=== PATIENT | male | born 1930 | race Caucasian/White ===

== ENCOUNTER → 2016-12-19 | Outpatient (CLI) | payer MEDICARE ==
[~2016-12-19] MED LIST: ACET500C OR; ASPI81TA83 OR; CARV12.5 OR; CARV6.25 OR; HYDR25TA6 OR; LEVA750T OR; MARINOL PO; MEGE40TA2 OR; MULTIVIT PO; PAXI20TA OR; PROS5TAB OR; SLOWTAB OR; VICO5TAB OR; VICODIN 5/500 PO; XANA0.5T OR
--- NOTE | 2016-12-19 13:37 | REP ---
Chest two views HISTORY: COPD Comparison: 02/13/2015 There is elevation of the right hemidiaphragm. The lungs are clear. The heart is normal in size. The pulmonary vasculature is normal in appearance. The bony structure is intact. IMPRESSION: No acute disease. Signed by Marcus Ha MD 12/19/2016 01:29 P
== END ==
LOC: M SMT 13:06
PROVIDERS: ATTEND Internal Medicine Pulmonary Disease
DX: R91.8 Other nonspecific abnormal finding of lung field (principal); J44.9 Chronic obstructive pulmonary disease, unspecified

== ENCOUNTER 2017-07-27 10:11 | Emergency (ER) | payer MEDICARE ==
[2017-07-27 11:21] LABS: BASO # 0.1 10^3/uL (0.0-0.2); BASO % 0.4 % (0.0-1.0); EOS # 0.1 10^3/uL (0.0-0.50); EOS % 0.6 % (0.0-3.0); HEMATOCRIT 43.8 % (42.0-52.0); HEMOGLOBIN 14.6 g/dl (13.5-17.5); IMMATURE GRANULOCYTE % 0.4 % (0-3.0); LYMPH # 1.4 10^3/uL (1.5-4.5); LYMPH % 11.1 % (24.0-44.0); MEAN CORPUSCULAR HEMOGLOBIN 32.4 pg (27.0-33.0); MEAN CORPUSCULAR HGB CONC 33.3 g/dl (32.0-36.5); MEAN CORPUSCULAR VOLUME 97.3 fl (80.0-96.0); MONO # 1.1 10^3/uL (0.0-0.8); MONO % 8.9 % (0.0-5.0); NEUTROPHILS # 9.7 10^3/uL (1.8-7.7); NEUTROPHILS % 78.6 % (36.0-66.0); PLATELET COUNT, AUTOMATED 237 10^3/uL (150-450); RED CELL DISTRIBUTION WIDTH 12.7 % (11.5-14.5); WHITE BLOOD COUNT 12.4 10^3/uL (4.0-10.0)
[2017-07-27 11:34] LABS: INR 2.07
[2017-07-27] MEDS: methylPREDNISolone INJ 125 MG/2 ML VIAL (J2930) IV (11:39)
[2017-07-27] MEDS: IPRATROPIUM 0.5MG/ALBUTEROL 2.5MG INH SOL UD 3ML (DUONEB)(J7620) NEB (11:41)
[2017-07-27 11:46] LABS: ALBUMIN 2.8 GM/DL (3.2-5.2); ALBUMIN/GLOBULIN RATIO 0.64 (1.00-1.93); ALKALINE PHOSPHATASE 91 U/L (45-117); ALT/SGPT 30 U/L (12-78); AST/SGOT 35 U/L (7-37); BILIRUBIN,DIRECT 0.2 MG/DL (0.0-0.2); BILIRUBIN,TOTAL 0.8 MG/DL (0.2-1.0); TOTAL PROTEIN 7.2 GM/DL (6.4-8.2)
[2017-07-27 11:47] LABS: ANION GAP 4 MEQ/L (8-16); BLOOD UREA NITROGEN 17 MG/DL (7-18); CALCIUM LEVEL 8.6 MG/DL (8.8-10.2); CARBON DIOXIDE LEVEL 31 MEQ/L (21-32); CHLORIDE LEVEL 107 MEQ/L (98-107); CPK CREATINE PHOSPHOKINASE 125 U/L (39-308); CREATININE FOR GFR 1.35 MG/DL (0.70-1.30); GLOMERULAR FILTRATION RATE 53.5 (>35); GLUCOSE, FASTING 181 MG/DL (70-100); POTASSIUM SERUM 4.3 MEQ/L (3.5-5.1); SODIUM LEVEL 142 MEQ/L (136-145); TROPONIN I < 0.02 NG/ML (< 0.10)
[2017-07-27 11:48] LABS: CK-MB VALUE MASS 1.9 NG/ML (<3.6); MB/CK RELATIVE INDEX 1.52 (< OR =4); NT-PRO BNP 1179 PG/ML (<450)
[2017-07-27 11:57] LABS: INFLUENZA A AMPLIFICATION NEGATIVE (NEGATIVE); INFLUENZA B AMPLIFICATION NEGATIVE (NEGATIVE)
== END 2017-07-27 13:23 | disposition home or self-care (01) ==
LOC: M ED 10:11
DX: J44.1 Chronic obstructive pulmonary disease with (acute) exacerbation (principal); J06.9 Acute upper respiratory infection, unspecified; I48.91 Unspecified atrial fibrillation; Z85.118 Personal history of other malignant neoplasm of bronchus and lung; Z86.718 Personal history of other venous thrombosis and embolism; Z87.891 Personal history of nicotine dependence; Z79.899 Other long term (current) drug therapy; Z79.01 Long term (current) use of anticoagulants; Z90.2 Acquired absence of lung [part of]
CPT/HCPCS: J2930

== ENCOUNTER → 2018-01-20 | Outpatient (CLI) | payer MEDICARE | LOC: M PLARAD 10:17 | DX: R91.8 Other nonspecific abnormal finding of lung field (principal); Z85.038 Personal history of other malignant neoplasm of large intestine; Z85.118 Personal history of other malignant neoplasm of bronchus and lung; Z90.2 Acquired absence of lung [part of] | CPT/HCPCS: 78815 ==

== ENCOUNTER → 2018-01-27 | Outpatient (REF) | payer MEDICARE ==
[2018-01-27 20:10] LABS: BASO # 0.1 10^3/uL (0.0-0.2); EOS # 0.2 10^3/uL (0.0-0.50); EOS % 2.1 % (0.0-3.0); HEMATOCRIT 44.7 % (42.0-52.0); HEMOGLOBIN 14.8 g/dl (13.5-17.5); IMMATURE GRANULOCYTE % 0.3 % (0-3.0); LYMPH # 1.5 10^3/uL (1.5-4.5); LYMPH % 19.5 % (24.0-44.0); MEAN CORPUSCULAR HEMOGLOBIN 32.6 pg (27.0-33.0); MEAN CORPUSCULAR HGB CONC 33.1 g/dl (32.0-36.5); MEAN CORPUSCULAR VOLUME 98.5 fl (80.0-96.0); MONO # 0.6 10^3/uL (0.0-0.8); MONO % 8.3 % (0.0-5.0); NEUTROPHILS # 5.3 10^3/uL (1.8-7.7); NEUTROPHILS % 68.8 % (36.0-66.0); PLATELET COUNT, AUTOMATED 228 10^3/uL (150-450); RED BLOOD COUNT 4.54 10^6/uL (4.30-6.10); RED CELL DISTRIBUTION WIDTH 13.8 % (11.5-14.5); WHITE BLOOD COUNT 7.7 10^3/uL (4.0-10.0)
[2018-01-27 20:15] LABS: PROTHROMBIN TIME 28.4 SECONDS (12.1-14.4)
[2018-01-27 20:53] LABS: ALBUMIN 3.3 GM/DL (3.2-5.2); ALBUMIN/GLOBULIN RATIO 0.94 (1.00-1.93); ALKALINE PHOSPHATASE 65 U/L (45-117); ALT/SGPT 21 U/L (12-78); ANION GAP 5 MEQ/L (8-16); AST/SGOT 26 U/L (7-37); BILIRUBIN,TOTAL 0.7 MG/DL (0.2-1.0); BLOOD UREA NITROGEN 16 MG/DL (7-18); CALCIUM LEVEL 8.5 MG/DL (8.8-10.2); CARBON DIOXIDE LEVEL 29 MEQ/L (21-32); CHLORIDE LEVEL 108 MEQ/L (98-107); CREATININE FOR GFR 1.01 MG/DL (0.70-1.30); GLOMERULAR FILTRATION RATE > 60.0 (>35); GLUCOSE, FASTING 73 MG/DL (70-100); SODIUM LEVEL 142 MEQ/L (136-145); TOTAL PROTEIN 6.8 GM/DL (6.4-8.2)
== END ==
LOC: M LAB REF 16:57
DX: C34.91 Malignant neoplasm of unspecified part of right bronchus or lung (principal); Z79.01 Long term (current) use of anticoagulants
CPT/HCPCS: 80053

== ENCOUNTER → 2018-02-02 | Outpatient (CLI) | payer MEDICARE ==
[2018-02-02 15:14] LABS: INR 1.08; PROTHROMBIN TIME 14.1 SECONDS (12.1-14.4)
[2018-02-02 15:15] LABS: PARTIAL THROMBOPLASTIN TIME 31.6 SECONDS (25.4-37.6)
== END ==
LOC: M LAB 14:24
DX: C34.91 Malignant neoplasm of unspecified part of right bronchus or lung (principal); I82.509 Chronic embolism and thrombosis of unspecified deep veins of unspecified lower extremity
CPT/HCPCS: 85610

== ENCOUNTER → 2018-02-23 | Outpatient (CLI) | payer MEDICARE ==
[2018-02-23 10:12] LABS: INR 1.25; PROTHROMBIN TIME 15.9 SECONDS (12.1-14.4)
== END ==
LOC: M LAB 09:25
DX: Z01.812 Encounter for preprocedural laboratory examination (principal); Z51.81 Encounter for therapeutic drug level monitoring; Z79.01 Long term (current) use of anticoagulants
CPT/HCPCS: 85610

== ENCOUNTER 2018-02-24 05:56 | Day surgery (SDC) | payer MEDICARE ==
[~2018-02-24 05:56] MED LIST changes: -ACET500C OR; -ASPI81TA83 OR; -CARV12.5 OR; -CARV6.25 OR; -HYDR25TA6 OR; -LEVA750T OR; +LR 1,000 ML IV; -MARINOL PO; -MEGE40TA2 OR; -MULTIVIT PO; -PAXI20TA OR; -PROS5TAB OR; -SLOWTAB OR; -VICO5TAB OR; -VICODIN 5/500 PO; -XANA0.5T OR
[2018-02-24] MEDS ORDERED: LR 1,000 ML IV ×2 (06:00→09:00)
[2018-02-24] MEDS ORDERED: ROCURONIUM BROMIDE 50 MG/5 ML VIAL As Ordered (06:14)
[2018-02-24] MEDS ORDERED: ETOMIDATE INJ 20MG/10ML VIAL As Ordered (06:14)
[2018-02-24] MEDS ORDERED: PROPOFOL 200 MG/20 ML VIAL As Ordered (06:14)
[2018-02-24] MEDS ORDERED: PHENYLEPHRINE INJ 10MG/ML VIAL (J2370) As Ordered (06:15)
[2018-02-24] MEDS ORDERED: dexameTHASONE 4 MG/ML 1ML VIAL (J1100) As Ordered (06:15)
[2018-02-24] MEDS ORDERED: ONDANSETRON 4MG/2ML VIAL (J2405) As Ordered (06:15)
[2018-02-24] MEDS ORDERED: LIDOCAINE 2% INJ 100 MG/5 ML SDV (FOR ANES.) As Ordered (06:16)
[2018-02-24 07:03] LABS: INR 1.17; PROTHROMBIN TIME 15.1 SECONDS (12.1-14.4)
[2018-02-24] MEDS: CETACAINE SPRAY 5GM As Ordered (07:48)
[2018-02-24] MEDS ORDERED: SUGAMMADEX SODIUM 500 MG/5 ML VIAL (BRIDION) As Ordered (07:58)
[2018-02-24] MEDS ORDERED: fentaNYL 100 MCG/2 ML INJECTION (J3010) As Ordered (07:58)
[2018-02-24] MEDS ORDERED: MIDAZOLAM INJ 2 MG/2 ML VIAL (J2250) As Ordered (07:58)
[2018-02-24] MEDS: THROMBIN SOLN 5,000 UNITS VIAL As Ordered (08:37)
[2018-02-24] MEDS: LIDOCAINE VISCOUS 2% SOLN 15ML UDC As Ordered (08:37)
[2018-02-24] MEDS: EPINEPHrine 1MG/10ML SYRINGE 1.5IN As Ordered (08:38)
[2018-02-24] MEDS: LIDOCAINE 1% SDV INJ 30 ML VIAL As Ordered (08:38)
[2018-02-24] MEDS ORDERED: PERCOCET 5MG/325MG TAB PO (09:00)
[2018-02-24] MEDS ORDERED: fentaNYL 100 MCG/2 ML INJECTION (J3010) IV (09:00)
[2018-02-24] MEDS ORDERED: METOCLOPRAMIDE INJ 10MG/2ML VIAL (J2765) IV (09:00)
[2018-02-24] MEDS ORDERED: ONDANSETRON 4MG/2ML VIAL (J2405) IV (09:00)
== END 2018-02-24 09:55 | disposition home or self-care (01) ==
LOC: M SDC 05:56
DX: R91.8 Other nonspecific abnormal finding of lung field (principal); C34.11 Malignant neoplasm of upper lobe, right bronchus or lung; I10 Essential (primary) hypertension; Z85.038 Personal history of other malignant neoplasm of large intestine; Z92.21 Personal history of antineoplastic chemotherapy; N40.0 Benign prostatic hyperplasia without lower urinary tract symptoms; I82.509 Chronic embolism and thrombosis of unspecified deep veins of unspecified lower extremity; J44.9 Chronic obstructive pulmonary disease, unspecified; Z86.73 Personal history of transient ischemic attack (TIA), and cerebral infarction without residual deficits; Z79.01 Long term (current) use of anticoagulants; Z79.51 Long term (current) use of inhaled steroids; Z79.899 Other long term (current) drug therapy
CPT/HCPCS: 31628

== ENCOUNTER 2018-03-09 16:29 | Emergency (ER) | payer MEDICARE ==
[2018-03-09 17:54] LABS: BASO # 0.1 10^3/uL (0.0-0.2); BASO % 0.6 % (0.0-1.0); EOS # 0.1 10^3/uL (0.0-0.50); EOS % 0.8 % (0.0-3.0); HEMATOCRIT 45.4 % (42.0-52.0); HEMOGLOBIN 15.2 g/dl (13.5-17.5); IMMATURE GRANULOCYTE % 0.4 % (0-3.0); LYMPH # 1.5 10^3/uL (1.5-4.5); LYMPH % 13.7 % (24.0-44.0); MEAN CORPUSCULAR HEMOGLOBIN 33.2 pg (27.0-33.0); MEAN CORPUSCULAR HGB CONC 33.5 g/dl (32.0-36.5); MEAN CORPUSCULAR VOLUME 99.1 fl (80.0-96.0); MONO # 0.8 10^3/uL (0.0-0.8); MONO % 7.2 % (0.0-5.0); NEUTROPHILS # 8.4 10^3/uL (1.8-7.7); NEUTROPHILS % 77.3 % (36.0-66.0); PLATELET COUNT, AUTOMATED 218 10^3/uL (150-450); RED BLOOD COUNT 4.58 10^6/uL (4.30-6.10); RED CELL DISTRIBUTION WIDTH 13.9 % (11.5-14.5); WHITE BLOOD COUNT 10.8 10^3/uL (4.0-10.0)
[2018-03-09 18:04] LABS: INR 2.22; PROTHROMBIN TIME 25.1 SECONDS (12.1-14.4)
[2018-03-09 18:05] LABS: PARTIAL THROMBOPLASTIN TIME 39.1 SECONDS (25.4-37.6)
[2018-03-09] MEDS: PERCOCET 5MG/325MG TAB PO (19:14)
[2018-03-09] MEDS: **hydrALAZINE** 10 MG TAB PO (20:09)
== END 2018-03-09 20:21 | disposition home or self-care (01) ==
LOC: M ED 16:29
DX: R04.0 Epistaxis (principal); Z87.891 Personal history of nicotine dependence
CPT/HCPCS: 85610

== ENCOUNTER 2018-03-11 23:19 | Emergency (ER) | payer MEDICARE ==
[2018-03-11] MEDS: **hydrALAZINE** 10 MG TAB PO (23:51)
[2018-03-12] MEDS: OXYMETAZOLINE NASAL SPRAY (AFRIN) (00:28)
[2018-03-12 00:29] LABS: BASO # 0.1 10^3/uL (0.0-0.2); BASO % 0.4 % (0.0-1.0); EOS # 0.2 10^3/uL (0.0-0.50); EOS % 1.2 % (0.0-3.0); HEMATOCRIT 44.4 % (42.0-52.0); HEMOGLOBIN 14.9 g/dl (13.5-17.5); IMMATURE GRANULOCYTE % 0.5 % (0-3.0); LYMPH # 1.3 10^3/uL (1.5-4.5); LYMPH % 9.2 % (24.0-44.0); MEAN CORPUSCULAR HEMOGLOBIN 32.7 pg (27.0-33.0); MEAN CORPUSCULAR HGB CONC 33.6 g/dl (32.0-36.5); MEAN CORPUSCULAR VOLUME 97.4 fl (80.0-96.0); MONO % 7.5 % (0.0-5.0); NEUTROPHILS # 11.1 10^3/uL (1.8-7.7); NEUTROPHILS % 81.2 % (36.0-66.0); PLATELET COUNT, AUTOMATED 238 10^3/uL (150-450); RED BLOOD COUNT 4.56 10^6/uL (4.30-6.10); RED CELL DISTRIBUTION WIDTH 14.2 % (11.5-14.5); WHITE BLOOD COUNT 13.6 10^3/uL (4.0-10.0)
[2018-03-12 00:41] LABS: INR 2.25; PROTHROMBIN TIME 25.3 SECONDS (12.1-14.4)
[2018-03-12 00:42] LABS: PARTIAL THROMBOPLASTIN TIME 41.6 SECONDS (25.4-37.6)
[2018-03-12] MEDS: CEPHALEXIN 500 MG CAP PO (02:28)
[2018-03-12] MEDS: CARVedilol 12.5 MG TAB PO (02:28)
== END 2018-03-12 03:02 | disposition home or self-care (01) ==
LOC: M ED 23:19
DX: R04.0 Epistaxis (principal); I10 Essential (primary) hypertension; Z85.038 Personal history of other malignant neoplasm of large intestine; Z86.718 Personal history of other venous thrombosis and embolism; Z79.01 Long term (current) use of anticoagulants; Z79.899 Other long term (current) drug therapy
CPT/HCPCS: 85610

== ENCOUNTER → 2018-03-18 | Outpatient (CLI) | payer MEDICARE | LOC: M RAD 07:51 | DX: R91.8 Other nonspecific abnormal finding of lung field (principal) | CPT/HCPCS: 71250 ==

== ENCOUNTER → 2018-03-20 | Outpatient (REF) | payer MEDICARE ==
[2018-03-20 18:55] LABS: INR 1.22; PARTIAL THROMBOPLASTIN TIME 32.9 SECONDS (25.4-37.6); PROTHROMBIN TIME 15.6 SECONDS (12.1-14.4)
== END ==
LOC: M LAB REF 17:00
DX: R91.8 Other nonspecific abnormal finding of lung field (principal); Z79.01 Long term (current) use of anticoagulants
CPT/HCPCS: 85610

== ENCOUNTER 2018-03-23 07:46 | Day surgery (SDC) | payer MEDICARE ==
[2018-03-23] MEDS ORDERED: ONDANSETRON 4MG/2ML VIAL (J2405) As Ordered (08:17)
[2018-03-23] MEDS ORDERED: PROPOFOL 200 MG/20 ML VIAL As Ordered (08:17)
[2018-03-23] MEDS ORDERED: LIDOCAINE 2% INJ 100 MG/5 ML SDV (FOR ANES.) As Ordered (08:17)
[2018-03-23] MEDS ORDERED: ROCURONIUM BROMIDE 50 MG/5 ML VIAL As Ordered (08:18)
[2018-03-23] MEDS ORDERED: MIDAZOLAM INJ 2 MG/2 ML VIAL (J2250) As Ordered (08:18)
[2018-03-23] MEDS ORDERED: fentaNYL 100 MCG/2 ML INJECTION (J3010) As Ordered (08:18)
[2018-03-23 08:25] LABS: INR 1.04; PROTHROMBIN TIME 13.8 SECONDS (12.1-14.4)
[2018-03-23] MEDS: LR 1,000 ML IV (08:45)
[2018-03-23] MEDS ORDERED: THROMBIN SOLN 5,000 UNITS VIAL As Ordered (09:08)
[2018-03-23] MEDS: LIDOCAINE VISCOUS 2% SOLN 15ML UDC As Ordered (09:09)
[2018-03-23] MEDS: LIDOCAINE 1% SDV INJ 30 ML VIAL As Ordered (09:09)
[2018-03-23] MEDS: EPINEPHrine 1MG/10ML SYRINGE 1.5IN As Ordered (09:09)
[2018-03-23] MEDS: CETACAINE SPRAY 5GM As Ordered (09:45)
[2018-03-23] MEDS ORDERED: PHENYLephrine HCL 500 MCG/5 ML (100MCG/ML) SYRINGE (J2370) As Ordered (09:56)
[2018-03-23] MEDS ORDERED: ePHEDrine SULFATE 25 MG/5 ML(5MG/ML) SYRINGE As Ordered (09:56)
[2018-03-23] MEDS ORDERED: SUGAMMADEX SODIUM 500 MG/5 ML VIAL (BRIDION) As Ordered (10:00)
[2018-03-23] MEDS: LIDOCAINE 1% MDV 20ML VIAL SQ (10:37)
[2018-03-23] MEDS ORDERED: fentaNYL 100 MCG/2 ML INJECTION (J3010) IV (10:45)
[2018-03-23] MEDS ORDERED: ONDANSETRON 4MG/2ML VIAL (J2405) IV (10:45)
[2018-03-23] MEDS ORDERED: LR 1,000 ML IV (10:45)
[2018-03-23] MEDS ORDERED: METOCLOPRAMIDE INJ 10MG/2ML VIAL (J2765) IV (10:45)
[2018-03-23] MEDS ORDERED: PERCOCET 5MG/325MG TAB PO (10:45)
[2018-03-23 12:13] LABS: APPEARANCE CLOTTED (CLEAR); BAL DIFF IF INDICATED? YES (NO); COLOR RED (COLORLESS); SOURCE RIGHT UPPER LOBE
[2018-03-23 13:37] LABS: MONOCYTES/MACROPHAGES, BAL 1 %
[2018-03-23 13:38] LABS: CC BAL DIFF EXAM CYTOCENTRIFUGE
== END 2018-03-23 12:08 | disposition home or self-care (01) ==
LOC: M SDC 07:46
DX: R91.1 Solitary pulmonary nodule (principal); I10 Essential (primary) hypertension; R09.81 Nasal congestion; N40.0 Benign prostatic hyperplasia without lower urinary tract symptoms; J44.9 Chronic obstructive pulmonary disease, unspecified; K21.9 Gastro-esophageal reflux disease without esophagitis; R29.898 Other symptoms and signs involving the musculoskeletal system; F41.9 Anxiety disorder, unspecified; Z79.899 Other long term (current) drug therapy; Z79.01 Long term (current) use of anticoagulants; Z85.118 Personal history of other malignant neoplasm of bronchus and lung; Z85.038 Personal history of other malignant neoplasm of large intestine; Z87.81 Personal history of (healed) traumatic fracture; Z86.718 Personal history of other venous thrombosis and embolism; Z86.79 Personal history of other diseases of the circulatory system; Z92.21 Personal history of antineoplastic chemotherapy; Z87.891 Personal history of nicotine dependence; Z96.642 Presence of left artificial hip joint
CPT/HCPCS: 31629

== ENCOUNTER → 2018-08-25 | Outpatient (CLI) | payer MEDICARE ==
[~2018-08-25] MED LIST changes: +ACET500C OR; +ALBU17IN2 INH; +ASPI81TA83 OR; +AUGM875T28 PO; +CARV12.5 OR; +CARV12.5 PO; +CARV6.25 OR; +HYDR10TAB PO; +HYDR25TA6 OR; +KEFL500C17 PO; +LEVA750T OR; -LR 1,000 ML IV; +MAGN64TASA PO; +MARINOL PO; +MEGE40TA2 OR; +MUCI600T37 PO; +MULT1TAB10 PO; +MULTIVIT PO; +PAXI20TA OR; +PRED20TA PO; +PROAAER10 INH; +PROS5TAB OR; +PROS5TAB PO; +SLOWTAB OR; +SYMB16INH INH; +TIOT18INH INH; +VICO5TAB OR; +VICODIN 5/500 PO; +WARF-23 PO; +XANA0.5T OR
--- NOTE | 2018-08-25 13:34 | REP ---
PET/CT: HISTORY: Staging lung cancer. Also history of colon carcinoma. COMPARISONS: Comparison PET/CT studies are dated January 20, 2018 and September 12, 2011. 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 Most recent chest CT study is March 18, 2018. TECHNIQUE: 47 minutes following the intravenous injection of a 8.56 mCi dose of F-18 FDG, three-dimensional PET scintigraphy is acquired from the skull base to the proximal thighs. Triplanar noncontrast CT scanning is acquired through the same anatomic range for attenuation correction, and image registration with scan parameters optimized to minimize radiation exposure to the patient. PET scintigraphy and CT datasets were fused and displayed on a workstation with multiplanar and projection display capability. PET/CT FINDINGS: There is an irregularly marginated pleural-based nodular opacity in the left upper lobe which now shows mildly hypermetabolic uptake. Maximum standard uptake value in this is 3.11. This measures approximately 1.9 cm as on March 18, [address] There is persistent hypermetabolic uptake in the large mass in the right perihilar region medially adjacent to the heart. Maximum standard uptake value here is 12.62. The hypermetabolic area measures 6.9 cm x 3.0 cm x 4.1 cm. On January 20, 2018, maximum standard uptake value in this area measured 17.7. It is similar in size. There is some pleural thickening posteriorly in the right inferior chest which shows a linear pattern of slightly increased uptake, maximum standard uptake value 2.34. This is unchanged. No other abnormal hypermetabolic uptake is seen in the chest. Head and neck soft tissues remain unremarkable. In the abdomen and pelvis, there is no abnormal hypermetabolic uptake. Postoperative changes are seen in the right abdomen. Small gallstones appear in retracted gallbladder. IMPRESSION: 1. Persistent hypermetabolic uptake in the right infrahilar mass. 2. Increased uptake is now visible in the left upper lobe pleuroparenchymal nodular density. 3. There is mildly increased non-hypermetabolic uptake in the right pleural thickening unchanged. Electronically Signed by Riki Call MD 08/25/2018 10:27 P
== END ==
LOC: M PLARAD 08:18
PROVIDERS: ATTEND Internal Medicine Pulmonary Disease
DX: C34.12 Malignant neoplasm of upper lobe, left bronchus or lung (principal); C34.01 Malignant neoplasm of right main bronchus; Z85.038 Personal history of other malignant neoplasm of large intestine
CPT/HCPCS: 78815; A9552

== ENCOUNTER → 2018-11-23 | Outpatient (CLI) | payer MEDICARE ==
[~2018-11-23] MED LIST changes: +FURO20TA2 PO; +MULTCAP PO; +SPIR1CAP INH
--- NOTE | 2018-11-23 14:15 | REP ---
REASON: Followup left hilar mass. COMPARISON: Multiple, the latest, 03/18/2018 iLog protocol. There is mediastinal and advanced right hilar adenopathy. This has increased. There are no pleural or pericardial effusions. There is a capacious superior pericardial recess, status quo. There is no change in the imaged upper abdomen or imaged osseous structures. There is cholelithiasis status quo. Evaluation of the lung meza shows a spiculated nodule in the left upper lobe some of which is pleural-based and having a maximal dimension of 2.4 cm increased from the prior exam when it measured 1.9 cm. It is spiculated. There are other scattered asymmetric densities throughout the lung meza. There is asymmetric pleural thickening bilaterally with evidence of prior surgical procedure in the right lower lobe. There is an additional left upper lobe nodule measuring 1.3 cm. Previously, this appeared to be only in the area of irregular density and pleural based. IMPRESSION: Worsened findings as described above. ? Electronically Signed by Johnathan Lyman DO 11/23/2018 02:21 P
== END ==
LOC: M RAD 09:23
PROVIDERS: ATTEND Internal Medicine Pulmonary Disease
DX: J44.9 Chronic obstructive pulmonary disease, unspecified (principal); K80.20 Calculus of gallbladder without cholecystitis without obstruction

== ENCOUNTER → 2019-01-06 | Outpatient (REF) | payer MEDICARE ==
[~2019-01-06] MED LIST changes: -ALBU17IN2 INH; +PROV108A INH
[2019-01-06 18:45] LABS: BASO # 0.1 10^3/uL (0.0-0.2); BASO % 0.9 % (0.0-1.0); EOS # 0.3 10^3/uL (0.0-0.5); EOS % 3.8 % (0.0-3.0); HEMATOCRIT 50.1 % (42.0-52.0); HEMOGLOBIN 16.6 g/dl (13.5-17.5); LYMPH # 1.4 10^3/uL (1.5-5.0); LYMPH % 16.1 % (24.0-44.0); MEAN CORPUSCULAR HEMOGLOBIN 33.7 pg (27.0-33.0); MEAN CORPUSCULAR HGB CONC 33.1 g/dl (32.0-36.5); MEAN CORPUSCULAR VOLUME 101.6 fl (80.0-96.0); MONO % 11.3 % (0.0-5.0); NEUTROPHILS % 67.6 % (36.0-66.0); PLATELET COUNT, AUTOMATED 280 10^3/uL (150-450); RED BLOOD COUNT 4.93 10^6/uL (4.30-6.10); WHITE BLOOD COUNT 8.8 10^3/uL (4.0-10.0)
[2019-01-06 18:59] LABS: BLOOD UREA NITROGEN 23 MG/DL (7-18); CALCIUM LEVEL 9.6 MG/DL (8.8-10.2); CARBON DIOXIDE LEVEL 30 MEQ/L (21-32); CHLORIDE LEVEL 105 MEQ/L (98-107); CREATININE FOR GFR 1.18 MG/DL (0.70-1.30); GLOMERULAR FILTRATION RATE > 60.0 (>35); GLUCOSE, FASTING 77 MG/DL (70-100); POTASSIUM SERUM 4.9 MEQ/L (3.5-5.1); SODIUM LEVEL 140 MEQ/L (136-145)
== END ==
LOC: M LAB REF 17:06
PROVIDERS: ATTEND Internal Medicine Pulmonary Disease
DX: J44.9 Chronic obstructive pulmonary disease, unspecified (principal)

== ENCOUNTER → 2019-01-11 | Outpatient (CLI) | payer MEDICARE ==
[~2019-01-11] MED LIST changes: +ACET1TAB55 PO; +ASMA16.7 INH; +STIO1AER IN
--- NOTE | 2019-01-12 07:19 | REP ---
CT CHEST WITHOUT CONTRAST: 01/11/2019 COMPARISON: 11/23/2018, 03/18/2018, outside CT. CLINICAL HISTORY: COPD, lung mass. TECHNIQUE: Noncontrast protocol utilized with coronal and sagittal reconstructions. iLogic protocol also utilized and images provided per request of the attending physician. FINDINGS: The patient has had right middle and lower lobectomy with volume loss right hemithorax. Hilar infrahilar mass on the right side again seen, thickness now 3 cm, was 2.9 cm. Length 8.1 cm, previously 8.2 cm at the same level. Overall not much changed in the past 6 weeks. The pleural thickening or pleural based mass in the right medial base circumferentially, posteriorly and laterally in the right lower lung zone. Pleuroparenchymal mass in the left mid upper lung zone again seen. Maximum diameter 2.7 cm was 2.5 cm. No other new or acute nodule, mass or interval change. There is compensatory hyperinflation in the left lung. There is prominence of the cardiac silhouette with some left atrial and ventricular enlargement. No pericardial thickening or effusion. A tiny hiatal hernia is suspected. Calcifications at the aortic root and some coronary artery calcifications noted. Vascular calcifications noted. There is some fluid in the superior pericardium adjacent to the ascending aorta, unchanged with a low CT attenuation values as on the previous study. Calcifications in the arch, no aneurysm. The sternum, manubrium, medial clavicles show some degenerative changes but no destructive lesion, glenohumeral joints, also with some degenerative change. The visualized portions of scapulae and humeral heads intact. Ribs without evidence of acute fracture or destructive lesion. Spine shows degenerative osteophytes without compression deformity. Upper abdomen shows calcified gallstones in a contracted gallbladder, as before. A few calcifications in the spleen with no hepatosplenomegaly or focal lesion. Adrenal glands grossly intact. Upper poles kidneys with some calcifications in pyramids on the right, but no hydronephrosis. There is fatty atrophy of the pancreas without inflammatory change. An anastomotic suture line in the region of the hepatic flexure is unchanged. IMPRESSION: 1. No change in the hilar infrahilar mass in the right and a few millimeters of increased size of the peripheral left mid upper lung zone lesion since the study 6 weeks ago. 2. Postoperative changes. 3. Heart size enlarged but stable. 4. Pleural thickening, pleural-based masses, medial and posterior right base, stable Electronically Signed by Huang Bowles MD 01/12/2019 08:18 A
== END ==
LOC: M RAD 17:57
PROVIDERS: ATTEND Internal Medicine Pulmonary Disease
DX: J44.9 Chronic obstructive pulmonary disease, unspecified (principal)

== ENCOUNTER 2019-01-18 07:36 | Day surgery (SDC) | payer MEDICARE ==
[~2019-01-18] VITALS: Ht 177.8 cm; Wt 81.6 kg
[~2019-01-18 07:36] MED LIST changes: -ACET1TAB55 PO; +LIDOCAINE 1% MDV 20ML VIAL SQ PRN; +LIDOCAINE 2% INJ 100 MG/5 ML SDV (FOR ANES.) As Ordered ONE; +LR 1,000 ML IV SCH; +ONDANSETRON 4MG/2ML VIAL (J2405) As Ordered ONE; +PROPOFOL 200 MG/20 ML VIAL As Ordered ONE
[2019-01-18] MEDS ORDERED: fentaNYL 100 MCG/2 ML INJECTION (J3010) As Ordered ONE (08:14)
[2019-01-18] MEDS ORDERED: ROCURONIUM BROMIDE 50 MG/5 ML VIAL As Ordered ONE ×2 (08:15→10:23)
[2019-01-18] MEDS ORDERED: dexameTHASONE 4 MG/ML 1ML VIAL (J1100) As Ordered ONE (08:16)
[2019-01-18] MEDS ORDERED: ACET1TAB55 PO (08:20)
[2019-01-18 08:21] LABS: INR 1.15; PROTHROMBIN TIME 14.4 SECONDS (11.8-14.0)
[2019-01-18] MEDS ORDERED: THROMBIN SOLN 5,000 UNITS VIAL As Ordered ONE (08:56)
[2019-01-18] MEDS ORDERED: EPINEPHrine 1MG/10ML SYRINGE 1.5IN As Ordered ONE (08:56)
[2019-01-18] MEDS ORDERED: CETACAINE SPRAY 5GM As Ordered ONE (08:56)
[2019-01-18] MEDS ORDERED: LIDOCAINE 1% SDV INJ 30 ML VIAL As Ordered ONE (08:56)
[2019-01-18] MEDS ORDERED: LIDOCAINE VISCOUS 2% SOLN 15ML UDC As Ordered ONE (08:56)
[2019-01-18] MEDS ORDERED: SUGAMMADEX SODIUM 500 MG/5 ML VIAL (BRIDION) As Ordered ONE (10:06)
[2019-01-18] MEDS ORDERED: PHENYLephrine HCL 500 MCG/5 ML (100MCG/ML) SYRINGE (J2370) As Ordered ONE (10:13)
[2019-01-18] MEDS ORDERED: ePHEDrine SULFATE 25 MG/5 ML(5MG/ML) SYRINGE As Ordered ONE ×2 (10:14→11:46)
--- NOTE | 2019-01-18 10:54 | REP ---
Limited chest x-ray: Single view. History: EBUS. Fluoroscopy time is recorded at 3 minutes 14 seconds. Findings: A single last image hold fluoroscopically obtained spot radiograph of the left chest documents bronchoscopic position and fiducial marker placement in the left chest. Electronically Signed by Riki Call MD 01/18/2019 11:48 A
[2019-01-18 11:53] VITALS: BP 139/70
--- NOTE | 2019-01-18 11:57 | REP ---
Portable chest x-ray: Single view. History: Post bronchoscopy. Comparison study: March 23, 2018. Findings: Lungs are exposed at a relatively low level of inspiration. There are two fiducial markers visible in the left upper perihilar region. Right hemidiaphragm is again noted to be elevated. There are surgical clips in the right hilus region. Cardiomegaly is observed. The aorta is tortuous and calcific. There is no evidence of pneumothorax or hydrothorax. Electronically Signed by Riki Call MD 01/18/2019 12:09 P
--- NOTE | 2019-01-20 14:31 | ROOR ---
Patient Name: Rosibel Ruth Procedure Date: 01/18/2019 8:57 AM Date of : 1930 Admit Type: Outpatient Age: 88 Note Status: Finalized Attending MD: Christine Samano MD Procedure: Bronchoscopy Indications: Left upper lobe mass, Hilar lymphadenopathy of the right side, Mediastinal adenopathy Providers: Christine Samano MD (Doctor) Referring MD: Estrella Willett MD (Referring MD) Requesting Physician: Medicines: General Anesthesia, Cetacaine topical Complications: No immediate complications. Estimated blood loss: Minimal Procedure: Pre-Anesthesia Assessment: - Prior to the procedure, a History and Physical was performed, and patient medications and allergies were reviewed. The patient's tolerance of previous anesthesia was also reviewed. The risks and benefits of the procedure and the sedation options and risks were discussed with the patient. All questions were answered, and informed consent was obtained. Prior Anticoagulants: The patient has taken Coumadin (warfarin), last dose was 5 days prior to procedure. ASA Grade Assessment: III - A patient with severe systemic disease. After reviewing the risks and benefits, the patient was deemed in satisfactory condition to undergo the procedure. The Bronchoscope was introduced through the mouth, via the endotracheal tube (the patient was intubated for the procedure) and advanced to the tracheobronchial tree of both lungs. The procedure was accomplished without difficulty. The patient tolerated the procedure well. Findings: In the trachea there were some nodularity noted in cartilaginous rings in upper portion of trachea. In the left lung the GATO with anatomic variant with three segmental bronchi. There was some webbing and pitting noted and few yellow mucoid secretions. No endobronchial lesions in left bronchial tree. Right Lung Abnormalities: Narrowing was found in the right upper lobe. Patient status post right middle and right lower lobectomy. Electromagnetic navigation bronchoscopy utilizing the [employer] system with iLogic upgrade was performed. The CT scan was used for planning purposes. A virtual bronchoscopic image was generated using the planning software and the left main bronchus megan, left lower lobe basilar segment, right upper lobe, right middle lobe and right lower lobe basilar segment registration points were marked on the virtual image. The target in the apical-posterior segment of the left upper lobe was marked. A nodule 2.7 cm in size was found and a pathway was identified. After a complete airway exam, the locatable guide/extended working channel was inserted and an automatic registration was performed by advancing the scope through the left main bronchus megan, left lower lobe basilar segment, right upper lobe, right middle lobe and right lower lobe basilar segment. The navigation phase was then begun to locate the target lesion(s). Positioning centrally (in relation to the lesion) was confirmed using the Olympus radial probe US catheter. The locatable guide was removed from the extended working channel. Fluoroscopy guided transbronchial brushings were obtained in the nodule in apical-posterior segment of the left upper lobe with a needle brush and sent for routine cytology. Transbronchial brushing technique was selected because the sampling site was not visible endoscopically. Transbronchial needle aspiration of a nodule was performed in the apical-posterior segment of the left upper lobe GenCut and sent for routine cytology. The procedure was guided by fluoroscopy. Transbronchial needle aspiration technique was selected because the sampling site was not visible endoscopically. Transbronchial biopsies were performed in the apical-posterior segment of the left upper lobe using forceps and sent for histopathology examination. The procedure was guided by fluoroscopy. Transbronchial biopsy technique was selected because the sampling site was not visible endoscopically. Fiducial marker placement was performed. Once the target lesion was identified, three markers were deployed in and around the lesion in the apical-posterior segment of the left upper lobe. An endobronchial ultrasound endoscope was utilized in order to assist with fine needle aspiration in the right paratracheal area and in the right hilum. Transbronchial needle aspiration of a lymph nodes was performed in the right paratracheal area and in the right hilum using an Olympus EBUS-TBNA 21 gauge needle and sent for routine cytology. The procedure was guided by ultrasound. Transbronchial needle aspiration technique was selected because the sampling site was not visible endoscopically. Estimated blood loss: minimal. Impression: - Left upper lobe mass - Hilar lymphadenopathy of the right side - Mediastinal adenopathy - A narrowing was found in the right upper lobe. - Electromagnetic navigation bronchoscopy was performed. - Transbronchial brushings were obtained. - A transbronchial needle aspiration was performed. - Transbronchial lung biopsies were performed. - Fiducial markers were deployed. - Endobronchial ultrasound was performed. - A transbronchial needle aspiration was performed. Recommendation: - Await test results. - Follow up with bronchoscopist as previously scheduled. Attending Participation: I personally performed the entire procedure. Christine Samano MD 01/20/2019 2:31:35 PM Number of Addenda: 0 Note Initiated On: 01/18/2019 8:57 AM
== END 2019-01-18 12:18 | disposition home or self-care (01) ==
LOC: M SDC 07:36
PROVIDERS: ATTEND Internal Medicine Pulmonary Disease
DX: C34.12 Malignant neoplasm of upper lobe, left bronchus or lung (principal); C77.1 Secondary and unspecified malignant neoplasm of intrathoracic lymph nodes; I10 Essential (primary) hypertension; J44.9 Chronic obstructive pulmonary disease, unspecified; I48.91 Unspecified atrial fibrillation; R60.0 Localized edema; N40.0 Benign prostatic hyperplasia without lower urinary tract symptoms; Z85.038 Personal history of other malignant neoplasm of large intestine; Z79.01 Long term (current) use of anticoagulants; Z79.899 Other long term (current) drug therapy; Z87.891 Personal history of nicotine dependence
CPT/HCPCS: 31623; 31626; 31627; 31628; 31629; 31652; 36415; 71045; 76000; 85610; 88104; 88173; 88305; 88341; 88342; A4648; J1100; J2370; J2405; J3010

== ENCOUNTER → 2019-01-19 | Outpatient (CLI) | payer MEDICARE ==
[~2019-01-19] MED LIST changes: +ACET1TAB55 PO; -LIDOCAINE 1% MDV 20ML VIAL SQ PRN; -LIDOCAINE 2% INJ 100 MG/5 ML SDV (FOR ANES.) As Ordered ONE; -LR 1,000 ML IV SCH; -ONDANSETRON 4MG/2ML VIAL (J2405) As Ordered ONE; -PROPOFOL 200 MG/20 ML VIAL As Ordered ONE
--- NOTE | 2019-01-19 15:59 | REP ---
REASON: History of polyneuropathy. COMPARISON: None. Partial syndesmophyte formation is seen bilaterally, heaviest at L2-3 and L3-4. The pedicles are intact bilaterally. There is no evidence of spondylolysis or spondylolisthesis. There is diffuse disc space narrowing at every level which is moderate and seen particularly posteriorly at L4-5. There is anterior lipping at every level. There is superior endplate irregularity involving L2. IMPRESSION: 1. Chronic changes as described above. 2. Superior endplate irregularity involving L2. Consider MRI to search for marrow edema if clinically relevant. Electronically Signed by Johnathan Lyman DO 01/19/2019 04:37 P
== END ==
LOC: M WUC 13:36
PROVIDERS: ATTEND Internal Medicine
DX: G62.9 Polyneuropathy, unspecified (principal)

== ENCOUNTER → 2019-02-02 | Outpatient (CLI) | payer MEDICARE ==
--- NOTE | 2019-02-03 10:57 | RADONC ---
RADIATION ONCOLOGY CONSULTATION NOTE DATE OF CONSULTATION: 02/02/2019 CHART NUMBER: [id number]. 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 ECOG PERFORMANCE STATUS: 0. CONSULTATION NOTE: Mr. Ruth is a very pleasant 88-year-old white male with the diagnosis of a long and extensive history dealing with adenocarcinoma of the lung, who is presenting to me today to see if there is any role for external beam radiation therapy as a therapeutic option. HISTORY OF PRESENT ILLNESS: Apparently, the patient's history dates back to early 2011 when he was seen by Dr. Jose Jasso for what at that time appeared to be a stage IA moderately differentiated adenocarcinoma of the right middle lobe. On 11/07/2011, the patient underwent a right lower lobe lobectomy, as well as a right middle lobe lobectomy and mediastinal lymph node sampling. The right lower lobe at that time showed emphysematous changes but no evidence of malignancy. The right middle lobe showed a 2 cm x 2 cm x 1.8 cm moderately differentiated adenocarcinoma of the lung. All margins of resection were negative. One hilar lymph node was negative. No vascular invasion was identified. Three mediastinal lymph nodes were negative for malignancy, as well. The patient received no subsequent chemotherapy or radiation therapy. Although the history is unclear, the patient was upset with Dr. Jasso for having removed the lower lobe, as well as the middle lobe, of the right lung and was not followed by him subsequently. 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 The patient did quite well for many years but apparently developed some increasing shortness of breath in 2018 and was found to have a right hilar mass. A PET scan done on 08/25/2018 showed marked hypermetabolic uptake in the right infrahilar mass. There was also a left upper lobe pleural parenchymal nodular density with increased uptake, as well. There was also mild increased but nonhypermetabolic in the right pleural thickening. The patient was followed; and on 11/25/2018, pulmonary function tests were done, and the patient was found to have an FEV-1 value of 1.22. On 01/18/2019, the patient underwent a bronchoscopic biopsy of the left upper lobe, which was positive for moderate to poorly differentiated adenocarcinoma consistent with a lung primary. A fine-needle aspiration cell block was done on the right hilar mass; and again, this was positive for moderately differentiated adenocarcinoma of likely lung primary. In addition, a right paratracheal lymph node was biopsied by a fine-needle aspiration and again was positive for moderately differentiated adenocarcinoma. At this time from the above results, the areas of disease extended from the left lung through the mediastinum and into the right lung region. The patient did not undergo any subsequent treatment and reports that he has gone to [facility] or something for the past 5 months or so and is now returning to discuss his therapeutic options, including radiation. A new CT scan of the chest was done on 01/11/2019 and shows the mass in the right hilar area measuring approximately 8.2 cm. There also appears to be increase in size of the pleural-based mass on the left. There has been no repeat PET scan undertaken since 5 months ago. ALLERGIES: The patient has no known drug allergies. PAST MEDICAL HISTORY: The patient's past medical history is positive for DVTs and hypertension. The patient reports that he had a colon resection for adenocarcinoma of the colon in the past. He also had an appendectomy and a tonsillectomy. He has had left hip surgery and kidney stones. SOCIAL HISTORY: The patient had smoked two packs of cigarettes per day for 10 years. He quit in 1972. He does not abuse alcohol. FAMILY HISTORY: The patient's family history is positive for breast and colon cancer in his mother and sisters. REVIEW OF SYSTEMS: The patient's review of systems is positive for some increasing shortness of breath. He is not dependent on nasal oxygen at this time. He does have some hearing loss. His review of systems is otherwise noncontributory. He denies nausea, vomiting, fevers, chills, night sweats, diplopia, headaches, anxiety or depression, anorexia, weight loss, visual disturbances, chest pain, urinary or bowel difficulties, bone pain, or neurological problems. PHYSICAL EXAMINATION The patient is a well-developed, well-nourished male in no acute distress. HEENT exam is normocephalic, atraumatic. Extraocular movements are intact. There is no palpable cervical, supraclavicular, infraclavicular, axillary, or inguinal lymphadenopathy present. Lungs are clear to auscultation and percussion. Heart has a regular rate and rhythm. Abdomen is benign with no hepatosplenomegaly, masses, or tenderness. Rectal examination reveals a normal anal sphincter tone. Skeletal examination reveals no tenderness to pressure or percussion of the bony skeleton. Extremities reveal no clubbing, cyanosis, or edema. Neurologic exam is grossly intact, as is the remainder of the physical examination. ASSESSMENT: Unfortunately, this patient has had both his right lower and right middle lobes removed. His pulmonary function test done 2 months ago show an FEV-1 of 1.22, and the patient reports that he has become more short of breath since that time. He now has malignancy involving the left upper lobe, as well as a large right hilar mass and right paratracheal lymphadenopathy. In order to incorporate these areas in a radiation field, we will be destroying the vast majority of the remainder of his right lung, as well as a significant portion of the left lung. Clearly, this patient is unable to tolerate such treatments; and, indeed, I believe radiation to these sites would be catastrophic and deadly. The patient is 88 years old and has done remarkably well considering his initial diagnosis of lung cancer 7 years ago. I could not quite understand his unhappiness with his original lung treatment; but, indeed, I think he has done quite well at this point. The patient is scheduled to be seen by his medical oncologist, Dr. Willett, on and will ask her many questions. At this point in considering his age, his options would be do nothing other than palliative care and supportive therapy versus some type of systemic therapy if offered. At this time, his quality of life is good; and, indeed, he has spent time in the [facility] enjoying his summer. He needs to question significantly the potential side effects of any therapy he does choose at this point. Once again, this patient is not a candidate for any type of radiation at this point. I have so informed him. I have, therefore, not set him up for any followup in our office. Thank you, however, for allowing us to participate in his care. cc: MD Jose Cazares MD Vivian Keenan, MD
== END ==
LOC: M ONCR 12:56
PROVIDERS: ATTEND Radiology Radiation Oncology
DX: C34.81 Malignant neoplasm of overlapping sites of right bronchus and lung (principal)

== ENCOUNTER → 2019-02-11 | Outpatient (CLI) | payer MEDICARE ==
[~2019-02-11] MED LIST changes: +ISOVUE-370 76% 100ML VIAL (Q9967) As Ordered ONE
--- NOTE | 2019-02-12 07:55 | REP ---
CT brain: 02/11/2019. Indication: Lung carcinoma. Metastatic workup. Comparison: None. Technique: Axial images of the brain were obtained from skull base to vertex with and without IV contrast. 75 ml Isovue 370 were administered. Findings: There is no acute intracranial hemorrhage, acute cortical infarction, mass effect, hydrocephalus or intracranial pathologic IV contrast enhancement. Diffuse volume loss is present. Intracranial atherosclerotic disease is noted. There are patchy areas of white matter hypoattenuation within the cerebral hemispheres most consistent with chronic small vessel disease. Impression: There is no evidence of acute intracranial process or intracranial metastatic disease. Volume loss and sequelae of chronic microangiopathic ischemic disease. Electronically Signed by Jeremy Gordillo DO 02/12/2019 07:46 A
== END ==
LOC: M RAD 13:19
PROVIDERS: ATTEND Internal Medicine Medical Oncology
DX: C34.90 Malignant neoplasm of unspecified part of unspecified bronchus or lung (principal); I67.2 Cerebral atherosclerosis
CPT/HCPCS: 70470; Q9967

== ENCOUNTER 2019-02-28 09:17 | Emergency (ER) | payer MEDICARE ==
[~2019-02-28] VITALS: Ht 177.8 cm; Wt 84.0 kg
[~2019-02-28 09:17] MED LIST changes: -ISOVUE-370 76% 100ML VIAL (Q9967) As Ordered ONE; +ONDA8TAB7 PO; +PROC10TA4 PO
[2019-02-28 10:32] LABS: HEMATOCRIT 42.1 % (42.0-52.0); HEMOGLOBIN 13.7 g/dl (13.5-17.5); MEAN CORPUSCULAR HEMOGLOBIN 33.5 pg (27.0-33.0); MEAN CORPUSCULAR HGB CONC 32.5 g/dl (32.0-36.5); MEAN CORPUSCULAR VOLUME 102.9 fl (80.0-96.0); PLATELET COUNT, AUTOMATED 104 10^3/uL (150-450); RED BLOOD COUNT 4.09 10^6/uL (4.30-6.10); WHITE BLOOD COUNT 3.8 10^3/uL (4.0-10.0)
--- NOTE | 2019-02-28 10:43 | REP ---
At abdominal series four views including PA chest, upright view of the abdomen and two supine views of the abdomen: PA chest: Comparisons are the chest CT dated 07/08/2018 and portable chest of 01/18/2019. There is elevation of the right hemidiaphragm, unchanged. The patient has a known paramediastinal mass in the right lung. This is unchanged. There are surgical clips in the left upper lobe where a mass-like density was identified on the comparison CT. Lung meza otherwise clear. Cardiac size is normal. There is no free subdiaphragmatic air. Impression: Known right lung mass and elevation of the right hemidiaphragm. No free subdiaphragmatic air. Abdomen, supine upright views: There is gaseous distension of the stomach. There is scattered gas in nondistended large and small bowel loops. A few air-fluid levels are identified on the upright view, suggesting ileus. There are abdominal right upper quadrant surgical clips and staple line. There are surgical clips in the right lower quadrant. There is a right hip arthroplasty. Impression: No bowel distension or obstruction. Occasional air-fluid levels in nondistended bowel loops, possibly ileus. Surgical staple lines and clips. Left hip arthroplasty. Electronically Signed by Giovani Hernandez MD 02/28/2019 10:35 A
[2019-02-28 10:51] LABS: INR 2.94; PROTHROMBIN TIME 30.5 SECONDS (11.8-14.0)
[2019-02-28 11:14] LABS: BASOPHILS 2 % (0-1); EOSINOPHILS 4 % (0-3); LYMPHOCYTES 11 % (16-44); NEUTROPHILS 82 % (28-66)
[2019-02-28 11:17] LABS: DOHLE BODIES 1+; PLATELET ESTIMATE DECREASED (NORMAL); TOXIC VACUOLATION 1+
[2019-02-28 11:19] LABS: TOXIC GRANULATION 1+
[2019-02-28 11:22] LABS: ANISOCYTOSIS 1+
[2019-02-28] MEDS ORDERED: NS 1,000 ML IV SCH (11:30)
[2019-02-28 11:33] LABS: BLOOD UREA NITROGEN 30 MG/DL (7-18); CREATININE FOR GFR 1.23 MG/DL (0.70-1.30); GLOMERULAR FILTRATION RATE 59.4 (>35); GLUCOSE, FASTING 133 MG/DL (70-100)
[2019-02-28 11:34] LABS: CARBON DIOXIDE LEVEL 29 MEQ/L (21-32); CHLORIDE LEVEL 103 MEQ/L (98-107); POTASSIUM SERUM 4.2 MEQ/L (3.5-5.1); SODIUM LEVEL 138 MEQ/L (136-145)
[2019-02-28 11:35] LABS: ALBUMIN 2.5 GM/DL (3.2-5.2); ALT/SGPT 21 U/L (12-78); BILIRUBIN,DIRECT 0.6 MG/DL (0.0-0.2); BILIRUBIN,TOTAL 2.1 MG/DL (0.2-1.0); CALCIUM LEVEL 8.3 MG/DL (8.8-10.2); CK-MB VALUE MASS 1.7 NG/ML (<3.6); CPK CREATINE PHOSPHOKINASE 40 U/L (39-308); MB/CK RELATIVE INDEX 4.25 (< OR =4); TOTAL PROTEIN 6.3 GM/DL (6.4-8.2); TROPONIN I < 0.02 NG/ML (< 0.10)
[2019-02-28 11:36] LABS: NT-PRO BNP 4479 PG/ML (<450)
[2019-02-28] MEDS ORDERED: ISOVUE-370 76% 100ML VIAL (Q9967) As Ordered ONE (11:55)
[2019-02-28] MEDS ORDERED: FINA5TAB2 PO (12:00)
[2019-02-28] MEDS ORDERED: WARF-18 PO (12:00)
--- NOTE | 2019-02-28 12:38 | ECGEPIP ---
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
--- NOTE | 2019-02-28 13:11 | REP ---
CT of the chest with IV contrast: Comparison is 01/11/2019. The patient has history of lung and colorectal carcinoma and has right middle lobectomy and right lower lobectomy. Volume loss in the right hemithorax is again noted, unchanged. There is a right paramediastinal, pericardiac mass measuring 3.0 cm transversely by 8.1 cm in AP, not significantly changed. There is a right paraspinal mass in the subcarinal zone extending inferolaterally along the pleura, unchanged. The pleural thickening posteriorly in the right hemithorax is unchanged. There is a pleural-based left upper lobe mass measuring 2.1 cm. This measured 2.6 cm previously. The remainder of the left lung is clear. The no mediastinal adenopathy is identified. There is pericardial fluid surrounding the ascending aorta, as previously. There is no other pericardial effusion. The thoracic aorta is otherwise unremarkable. Cardiac size is upper normal. There are no lytic, blastic or destructive skeletal changes. There are no emboli in the pulmonary trunk or central pulmonary arteries. There are no emboli in the pulmonary artery lobe or segment branches. The right paramediastinal mass encases but does not occluded the right pulmonary artery. Impression: No significant change from 01/11/2019. Electronically Signed by Giovani Hernandez MD 02/28/2019 01:02 P
--- NOTE | 2019-02-28 13:24 | REP ---
CT of the abdomen and pelvis with IV contrast, without bowel contrast: Comparison is 03/09/2008. The patient is a history of lung and colorectal carcinoma and has had long right middle lobe resection and right lower lobe resection and has had colonic resection. Please refer to the chest CT this same date for findings in the chest. The hepatic parenchyma is homogeneous. The The gallbladder is collapsed. There are multiple calculi in the collapsed gallbladder. This is unchanged. There is no biliary duct dilatation. There is fatty atrophy of the pancreas. This is unchanged. The pancreas is otherwise unremarkable. The spleen is unremarkable for arterial phase imaging. The adrenals and kidneys are unremarkable. The abdominal aorta is unremarkable. There is no dissection or aneurysm. There is no periaortic adenopathy or mass. There is no mesenteric adenopathy or ascites. There is a surgical circumferential suture line in the colonic hepatic flexure compatible with ascending colon resection. The colon is otherwise unremarkable. Pelvis: The bladder is unremarkable. The previous left bladder diverticulum containing a calculus is no longer identified. There is no adenopathy or ascites. The pelvic bowel loops are unremarkable. There is a left hip arthroplasty. There are no lytic, blastic or destructive skeletal changes. Impression: Ascending colon resection. No adenopathy or metastases. No aortic dissection or aneurysm. Fatty atrophy of the pancreas. The previous bladder diverticulum is no longer identified. Left hip arthroplasty. Electronically Signed by Giovani Hernandez MD 02/28/2019 01:15 P
[2019-02-28] MEDS ORDERED: LACT10SO29 PO (16:04)
[2019-02-28 16:46] VITALS: BP 147/67
== END 2019-02-28 17:08 | disposition home or self-care (01) ==
LOC: M ED 09:17
DX: I48.91 Unspecified atrial fibrillation (principal); I45.10 Unspecified right bundle-branch block; I44.4 Left anterior fascicular block; K59.00 Constipation, unspecified; R06.02 Shortness of breath; I10 Essential (primary) hypertension; J44.9 Chronic obstructive pulmonary disease, unspecified; Z86.718 Personal history of other venous thrombosis and embolism; C34.90 Malignant neoplasm of unspecified part of unspecified bronchus or lung; C18.9 Malignant neoplasm of colon, unspecified; Z90.2 Acquired absence of lung [part of]; Z87.891 Personal history of nicotine dependence; Z86.79 Personal history of other diseases of the circulatory system; Z96.642 Presence of left artificial hip joint; K86.89 Other specified diseases of pancreas; Z79.01 Long term (current) use of anticoagulants; Z79.899 Other long term (current) drug therapy
CPT/HCPCS: 36415; 71275; 74021; 74177; 80048; 80076; 82550; 82553; 83605; 83880; 84443; 84484; 85025; 85610; 87040; 87486; 87581; 87633; 87798; 93005; 93041; 94760; 99284; Q9967

== ENCOUNTER 2019-03-05 10:54 | Inpatient (IN) | payer MEDICARE ==
[~2019-03-05] VITALS: Ht 177.8 cm; Wt 81.0 kg
[~2019-03-05 10:54] MED LIST changes: +FINA5TAB2 PO; +LACT10SO29 PO; +STIO1AER INH; +WARF-18 PO
[2019-03-05] MEDS ORDERED: LACT10SO3 PO (12:28)
[2019-03-05] MEDS ORDERED: SENN8.6T28 PO (12:28)
--- NOTE | 2019-03-05 12:39 | REP ---
KUB: Portable exam. History: Constipation. Comparison study: February 28, 2019. Findings: Supine portable abdomen views demonstrate a large amount of formed stool in the left colon question constipation. There is mild gaseous distension of the transverse colon. The patient appears to be status post right hemicolectomy. There are a few loops of air-filled mildly dilated small bowel in the central abdomen as well. Impression: Large amount of formed stool in the left colon. Question constipation. Status post right hemicolectomy. Electronically Signed by Riki Call MD 03/05/2019 12:31 P
[2019-03-05] MEDS ORDERED: METOCLOPRAMIDE INJ 10MG/2ML VIAL (J2765) IV ONE (13:00)
[2019-03-05] MEDS ORDERED: NS 1,000 ML IV ONE (13:00)
[2019-03-05 14:02] LABS: HEMOGLOBIN 13.3 g/dl (13.5-17.5); MEAN CORPUSCULAR HEMOGLOBIN 33.8 pg (27.0-33.0); MEAN CORPUSCULAR HGB CONC 33.3 g/dl (32.0-36.5); MEAN CORPUSCULAR VOLUME 101.8 fl (80.0-96.0); RED BLOOD COUNT 3.93 10^6/uL (4.30-6.10); WHITE BLOOD COUNT 8.3 10^3/uL (4.0-10.0)
[2019-03-05 14:03] LABS: PLATELET COUNT, AUTOMATED 65 10^3/uL (150-450)
[2019-03-05 14:24] LABS: INR 2.71; PROTHROMBIN TIME 28.6 SECONDS (11.8-14.0)
[2019-03-05 14:25] LABS: BASOPHILS 1 % (0-1); EOSINOPHILS 2 % (0-3); LYMPHOCYTES 12 % (16-44); MONOCYTES 1 % (0-5); NEUTROPHILS 84 % (28-66); PARTIAL THROMBOPLASTIN TIME 47.9 SECONDS (25.0-38.4); PLATELET ESTIMATE MARKED DECREASE (NORMAL)
[2019-03-05] MEDS ORDERED: MAGNESIUM CITRATE 300 ML BTL PO ONE (18:45)
--- NOTE | 2019-03-05 19:20 | REPVR ---
PROCEDURE INFORMATION: Exam: CT Abdomen And Pelvis Without Contrast Exam date and time: 03/05/2019 6:51 PM Clinical history: 88 years old, male; Abdominal pain; Generalized; Additional info: Abd pain TECHNIQUE: Imaging protocol: Computed tomography of the abdomen and pelvis without contrast. Radiation optimization: All CT scans at this facility use at least one of these dose optimization techniques: automated exposure control; mA and/or kV adjustment per patient size (includes targeted exams where dose is matched to clinical indication); or iterative reconstruction. COMPARISON: CT ABD/PEL W/IV CONTRAST ONLY 02/28/2019 12:05 PM FINDINGS: Lungs: Calcified granuloma left lower lobe. Mediastinum: A small hiatal hernia is present. Liver: Normal. No mass. Gallbladder and bile ducts: Contracted gallbladder containing calculi consistent with chronic cholecystitis. Pancreas: There is diffuse pancreatic atrophy. Spleen: The spleen demonstrates punctate calcifications, consistent with remote granulomatous organism exposure. Adrenals: Normal. No mass. Kidneys and ureters: Several nonobstructive renal calculi on the right measure up to 6 mm. Stomach and bowel: There is increased feces throughout the colon consistent with constipation with impacted feces in the rectum. Appendix: No evidence of appendicitis. Intraperitoneal space: Unremarkable. No free air. No significant fluid collection. Vasculature: Unremarkable. No abdominal aortic aneurysm. Lymph nodes: Unremarkable. No enlarged lymph nodes. Bladder: Doppler mild left-sided bladder diverticulum. Reproductive: The prostate gland demonstrates mild hyperplasia. Bones/joints: The spine demonstrates mild degenerative changes. Status post total hip replacement on the left. Soft tissues: Small umbilical hernia. IMPRESSION: 1. Contracted gallbladder containing calculi consistent with chronic cholecystitis. 2. Small hiatal hernia. 3. There is diffuse pancreatic atrophy. 4. There is increased feces throughout the colon consistent with constipation with impacted feces in the rectum. 5. Mild prostatic hyperplasia. 6. Nonobstructive right renal calculi. 7. Findings consistent with remote intrathoracic and intra-abdominal granulomatous infection. Impression. Electronically signed by: Ole Chaves On 03/05/2019 19:20:22 PM
[2019-03-05] MEDS ORDERED: HYDR10TAB PO (19:40)
[2019-03-05] MEDS ORDERED: PROC10TA4 PO (19:40)
[2019-03-05] MEDS ORDERED: SENN8.6T58 PO (19:40)
[2019-03-05] MEDS ORDERED: ONDA8TAB7 PO (19:40)
[2019-03-05] MEDS ORDERED: FLUCONAZOLE 100 MG TAB PO ONE (20:30)
[2019-03-05] MEDS ORDERED: ALBUTEROL 90 MCG/ACT 8GM HFA INHALER INH PRN (20:30)
[2019-03-05] MEDS ORDERED: PROCHLORPERAZINE 5 MG TAB (S0183) PO PRN (20:30)
[2019-03-05] MEDS ORDERED: ONDANSETRON 4 MG TAB (S0181) PO PRN (20:30)
[2019-03-05] MEDS: MIRALAX *UNIT DOSE* 17GM PACKET PO SCH (21:00)
[2019-03-05 22:00] VITALS: BP 147/69
[2019-03-05] MEDS: CARVedilol 12.5 MG TAB PO SCH (23:27)
[2019-03-05] MEDS: **hydrALAZINE** 10 MG TAB PO SCH (23:28)
[2019-03-05] MEDS: SENNA 8.6 MG TAB (SENOKOT) PO SCH (23:29)
[2019-03-05] MEDS: NS 1,000 ML IV SCH (23:31)
[2019-03-05] MEDS: ACETAMINOPHEN 325 MG TAB PO PRN (23:38)
[2019-03-05 23:45] VITALS: BP 142/67
[2019-03-06 05:27] VITALS: BP 107/59
[2019-03-06 06:46] LABS: HEMATOCRIT 35.9 % (42.0-52.0); MEAN CORPUSCULAR HEMOGLOBIN 33.5 pg (27.0-33.0); MEAN CORPUSCULAR HGB CONC 33.4 g/dl (32.0-36.5); MEAN CORPUSCULAR VOLUME 100.3 fl (80.0-96.0); RED BLOOD COUNT 3.58 10^6/uL (4.30-6.10); WHITE BLOOD COUNT 12.4 10^3/uL (4.0-10.0)
[2019-03-06 06:49] LABS: PLATELET COUNT, AUTOMATED 64 10^3/uL (150-450)
[2019-03-06 06:55] LABS: INR 2.67; PROTHROMBIN TIME 28.3 SECONDS (11.8-14.0)
[2019-03-06 07:11] LABS: BLOOD UREA NITROGEN 16 MG/DL (7-18); CALCIUM LEVEL 7.4 MG/DL (8.8-10.2); CARBON DIOXIDE LEVEL 27 MEQ/L (21-32); CHLORIDE LEVEL 110 MEQ/L (98-107); CREATININE FOR GFR 0.99 MG/DL (0.70-1.30); GLOMERULAR FILTRATION RATE > 60.0 (>35); GLUCOSE, FASTING 91 MG/DL (70-100); POTASSIUM SERUM 4.3 MEQ/L (3.5-5.1); SODIUM LEVEL 143 MEQ/L (136-145)
[2019-03-06] MEDS: NS 1,000 ML IV SCH ×2 (08:05→21:34)
[2019-03-06] MEDS ORDERED: MAGNESIUM CITRATE 300 ML BTL PO ONE (09:00)
[2019-03-06] MEDS: MIRALAX *UNIT DOSE* 17GM PACKET PO SCH ×2 (09:11→21:00)
[2019-03-06] MEDS: SENNA 8.6 MG TAB (SENOKOT) PO SCH ×2 (09:11→21:00)
[2019-03-06] MEDS: **hydrALAZINE** 10 MG TAB PO SCH ×3 (09:12→21:33)
[2019-03-06] MEDS: CARVedilol 12.5 MG TAB PO SCH ×2 (09:12→21:33)
[2019-03-06] MEDS: FLUCONAZOLE 100 MG TAB PO SCH (09:12)
[2019-03-06] MEDS: FINASTERIDE 5 MG TAB PO SCH (09:13)
[2019-03-06] MEDS: BISACODYL 10 MG SUPP PR SCH ×2 (10:00→21:00)
--- NOTE | 2019-03-06 11:24 | HPE ---
DATE OF ADMISSION: 03/05/2019 PRIMARY CARE PHYSICIAN: Dr. Jose D Buck CHIEF COMPLAINT: Constipation. HISTORY OF THE PRESENT ILLNESS: This is an 88-year-old male with a history of colon cancer, status post right hemicolectomy in 1999, bilateral lung adenocarcinoma with dominant 8 cm right hilar mass, left peripheral pleural based left upper lobe 3 cm mass, biopsy-proven adenocarcinoma, cab driver mutation negative, PD-L1 0, had a prior history of lung resection in 2011, currently with recurrence. Undergoing chemotherapy, first was performed on 02/04. Patient is followed at the pulmonary clinic by Dr. Samano. PET scan on 08/2018 showed an uptake in the right infrahilar mass, which in February of 2018 measured 3.5 cm, as well as a left upper lobe nodular density and right pleural non-hypermetabolic thickening. FNA of the right hilar mass was positive for moderately-differentiated adenocarcinoma. He presents to the emergency room with complaints of increasing constipation, seen in the emergency room (ER), and given a bowel regimen and lactulose with no effect. He was seen by his oncologist and was given Senokot, again without any improvement. Patient complains of increased bloating, decreased appetite, and was not eating or drinking due to significant abdominal distention and constipation. Patient also complains of some purulent material in his penis, the foreskin, and was treated with topical ointments by his primary care physician. He complains of dyspnea walking from the front office agent about 10-15 feet, often times does not have enough energy to take a shower or shave. He has a prognosis of 6 months with no treatment, possibly a year or longer with treatment. Denies any hemoptysis, fever, chills, or cough. Patient had received carboplatin and pemetrexed with a plan for four cycles three weeks apart. First cycle was done in January. Patient is to have a return visit in February, possibly chemo every 21 days. PAST MEDICAL HISTORY: Right colon cancer with right hemicolectomy. BPH. Kidney stones. Hypertension. Bladder stones. Bilateral lung adenocarcinoma. Right hilar mass. PAST SURGICAL HISTORY: Right hemicolectomy in 1999. Right middle lung resection, adenocarcinoma in 2011. ALLERGIES: No known drug allergies. SOCIAL HISTORY: Lives alone. 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 Smoked two packs a day from the age of 20 to 36. Quit 50 years ago. 40-pack year history of smoking. Recent pulmonary function test (PFC) showed FEV1 of 1.22. FAMILY HISTORY: Patient's mother at 97 with breast cancer, father age 67 with asthma, two sisters, both , breast and colon cancer and lung cancer as well. REVIEW OF SYSTEMS: Per history of the present illness. Twelve point system otherwise negative. PHYSICAL EXAMINATION: Temperature 98.7, pulse 90, respiratory rate 28, blood pressure 156/72, 96% on room air. Generally, awake, alert, oriented to person, place and time. Patient is speaking in full sentences. No respiratory distress. No conversational dyspnea. No jugular venous distention (JVD), thyromegaly, lymphadenopathy, or use of respiratory accessory muscles. Lungs are clear to auscultation. No wheezing or rales. Heart: S1, S2, sinus rhythm, 2/6 systolic murmur is noted. Abdomen is soft, nontender, nondistended. Positive bowel sounds times four quadrants. Hyperactive. No hepatosplenomegaly. Extremities: No pitting edema. Genitourinary Exam: Patient has uncircumcised penis with some white creamy discharge noted. LABORATORY DATA: White count 8.3, hemoglobin 13, hematocrit 40, platelet count 65. Sodium 141, potassium 4.1, chloride 104, bicarbonate 27, BUN 17, creatinine 0.8, glucose of 86, INR of 2.71, ionized calcium of 4.6. IMAGING STUDIES: CT abdomen and pelvis: Contracted gallbladder consistent with chronic cholecystitis, small hiatal hernia, diffuse pancreatic atrophy, increased feces throughout the colon consistent with constipation with impacted feces in the rectum, mild prostatic hyperplasia, nonobstructive right renal calculi. ASSESSMENT AND PLAN: This is an 88-year-old male with a history of colon cancer, status post right hemicolectomy, kidney stones, hypertension, paroxysmal atrial fibrillation, personal history of stage I lung cancer and stage IIIB colon cancer with metastatic recurrence beginning with stump recurrence from August 2011 adenocarcinoma of the lung, treated with right middle and right lower lobe lobectomy, status post carboplatin, pemetrexed in 01/2019 with plans for pembrolizumab and continued folic acid daily. History of atrial fibrillation and COPD. CURRENT ISSUES: 1. Constipation. Bowel regimen and enemas if needed. Patient does need a laxative and a high-fiber diet. Encourage ambulation. Check TSH. Ionized calcium appears to be normal. 2. Bilateral lung adenocarcinoma, undergoing chemotherapy. First chemo was in January. Maintain on folic acid. He has had a prior history of stage IA lung cancer with right middle and lower lobe lobectomy. 3. History of atrial fibrillation. Currently on anticoagulation with therapeutic INR. 4. COPD with a [id number] history of smoking, quit 50 years ago, now with FEV1 of 1.22. Nebulizer treatments as needed. Follows with Dr. Samano as an outpatient. 5. Thrombocytopenia. Significantly different from 02/23/2019, most likely related to chemotherapy. No active signs of bleeding. 6. Penile discharge secondary to fungal infection. Diflucan. 7. Hypertension, on Coreg 12.5 mg twice a day. 8. BPH, on chronic Proscar.
[2019-03-06] MEDS ORDERED: GOLYTELY SOLN 4000 ML BTL PO ONE (14:00)
[2019-03-06] MEDS: MAGNESIUM CHLORIDE 64 MG TABCR (SLO MAG) PO SCH (14:05)
[2019-03-06 14:30] VITALS: BP 127/72
[2019-03-06] MEDS ORDERED: VITAMIN A & D OINTMENT 60 GM TOP PRN (16:15)
[2019-03-06] MEDS ORDERED: WARFARIN SOD 5 MG TAB PO SCH (17:00)
[2019-03-06 20:00] VITALS: BP 156/74
[2019-03-06] MEDS: LIDOCAINE 5% OINT 30 GM TOP SCH (21:00)
[2019-03-06] MEDS: ACETAMINOPHEN 325 MG TAB PO PRN (21:33)
[2019-03-07 06:00] VITALS: BP 128/64
[2019-03-07 07:30] LABS: INR 2.95; PROTHROMBIN TIME 30.7 SECONDS (11.8-14.0)
[2019-03-07] MEDS: SENNA 8.6 MG TAB (SENOKOT) PO SCH ×2 (09:00→21:00)
[2019-03-07 09:07] LABS: BLOOD UREA NITROGEN 17 MG/DL (7-18); CALCIUM LEVEL 7.7 MG/DL (8.8-10.2); CARBON DIOXIDE LEVEL 26 MEQ/L (21-32); CHLORIDE LEVEL 110 MEQ/L (98-107); CREATININE FOR GFR 0.97 MG/DL (0.70-1.30); GLOMERULAR FILTRATION RATE > 60.0 (>35); GLUCOSE, FASTING 84 MG/DL (70-100); POTASSIUM SERUM 4.5 MEQ/L (3.5-5.1); SODIUM LEVEL 142 MEQ/L (136-145)
[2019-03-07 09:08] LABS: HEMATOCRIT 39.3 % (42.0-52.0); HEMOGLOBIN 12.7 g/dl (13.5-17.5); MEAN CORPUSCULAR HEMOGLOBIN 33.5 pg (27.0-33.0); MEAN CORPUSCULAR HGB CONC 32.3 g/dl (32.0-36.5); MEAN CORPUSCULAR VOLUME 103.7 fl (80.0-96.0); RED BLOOD COUNT 3.79 10^6/uL (4.30-6.10); WHITE BLOOD COUNT 17.4 10^3/uL (4.0-10.0)
[2019-03-07 09:10] LABS: PLATELET COUNT, AUTOMATED 80 10^3/uL (150-450)
--- NOTE | 2019-03-07 09:12 | REP ---
KUB: Seven two views. History: Fecal impaction. Abdomen pain. Comparison radiograph March 05, 2019. Findings: The bowel gas pattern is improved. There is no visible stool in the colon. Some transverse left colonic gas is seen. A right colonic anastomosis is observed. There are a few loops of air-filled small bowel in the central abdomen. Impression: Improved bowel gas pattern. Electronically Signed by Riki Call MD 03/07/2019 09:03 A
[2019-03-07] MEDS: FLUCONAZOLE 100 MG TAB PO SCH (09:22)
[2019-03-07] MEDS: MAGNESIUM CHLORIDE 64 MG TABCR (SLO MAG) PO SCH (09:22)
[2019-03-07] MEDS: CARVedilol 12.5 MG TAB PO SCH ×2 (09:22→21:02)
[2019-03-07] MEDS: FINASTERIDE 5 MG TAB PO SCH (09:23)
[2019-03-07] MEDS: **hydrALAZINE** 10 MG TAB PO SCH ×3 (09:23→21:03)
[2019-03-07] MEDS: BISACODYL 10 MG SUPP PR SCH ×2 (09:23→21:00)
[2019-03-07] MEDS: MIRALAX *UNIT DOSE* 17GM PACKET PO SCH ×2 (09:23→21:00)
[2019-03-07] MEDS: LIDOCAINE 5% OINT 30 GM TOP SCH ×2 (11:00→21:00)
[2019-03-07 14:22] VITALS: BP 136/62
[2019-03-07] MEDS ORDERED: WARFARIN SOD 2.5 MG TAB PO SCH (17:00)
--- NOTE | 2019-03-07 19:46 | IPN ---
DATE: 03/07/2019 The patient says that he had good bowel movement, three solid yesterday, and continued to have loose stools today. Per nursing, no solid bowel movement from midnight to this morning, only liquid through his diaper. Abdominal pain is improved, but the patient is bloated this morning. He is passing gas, slightly nauseous. No vomiting. No fever or chills. PHYSICAL EXAMINATION: VITAL SIGNS : Temperature 97.2, pulse 70, respiratory rate 16, blood pressure 128/64, 96% on room air. GENERAL: Awake, alert, oriented to person, place. Answering questions appropriately. No pallor. No icterus. No jaundice. No jugular venous distention (JVD) or thyromegaly. LUNGS: Diminished. HEART: S1, S2. Sinus rhythm. ABDOMEN: Distended, tympanitic on examination and hyperactive bowel sounds. EXTREMITIES: No pitting edema. LABORATORY DATA: 03/07/2019 lab data not available, still pending. ASSESSMENT AND PLAN: This is an 88-year-old male with history of right colon cancer with right hemicolectomy, benign prostatic hypertrophy (BPH), kidney stones, bladder stones, hypertension, bilateral lung adenocarcinoma, right hilar mass with prior history of right middle lobe, right lower lobe resection, presents with intractable constipation and fecal impaction. The patient has recurrence of his stage I lung cancer, status post carboplatin, pemetrexed in January 2019 with plans for pembrolizumab and continued folic acid. The patient does also have a history of atrial fibrillation and chronic obstructive pulmonary disease (COPD) on chronic anticoagulation. 1. Fecal impaction. Bowel regimen, enemas have been given with some improvement but not completely resolved. Currently on high fiber diet and encouraged ambulation. The patient is having a repeat abdominal film today. 2. Bilateral lung adenocarcinoma, undergoing chemotherapy, status post first cycle of carboplatin, pemetrexed in January 2019 with plans for pembrolizumab. He is continued on folic acid daily. He had a prior history of a stage I A lung cancer, status post right middle and lower lobectomies with metastatic recurrence beginning with stump recurrence from August 2011. The patient is currently saturating well on room air but with ambulation may desaturate and therefore we will check pulse oximetry with ambulation. 3. Atrial fibrillation, rate controlled. On anticoagulation with therapeutic INR. Hold for INR greater than 3. 4. Chronic obstructive pulmonary disease (COPD) with 40 pack year history of smoking, quit 50 years ago, FEV1 of 1.22. On nebulizer treatments. Not requiring oxygen as yet. Follows with Dr. Samano outpatient. 5. Penile discharge with fungal infection. On Diflucan. 6. Hypertension. On Coreg 12.5 mg twice a day. 7. Benign prostatic hypertrophy (BPH). On chronic Proscar. 8. Thrombocytopenia, may be chemotherapy related. Monitoring with repeat metabolic panel, currently 67 with no signs of rectal bleeding. MTDD
[2019-03-07 20:00] VITALS: BP 159/72
[2019-03-07 21:03] VITALS: BP 159/72
[2019-03-08 06:00] VITALS: BP 108/59
[2019-03-08] MEDS ORDERED: MIRA3350 PO (07:34)
[2019-03-08] MEDS ORDERED: SENO8.6T10 PO (07:34)
[2019-03-08] MEDS ORDERED: MOM30SS2 PO (07:35)
[2019-03-08] MEDS: FINASTERIDE 5 MG TAB PO SCH (09:00)
[2019-03-08] MEDS: MIRALAX *UNIT DOSE* 17GM PACKET PO SCH (09:00)
[2019-03-08] MEDS: CARVedilol 12.5 MG TAB PO SCH (09:00)
[2019-03-08] MEDS: **hydrALAZINE** 10 MG TAB PO SCH (09:00)
[2019-03-08] MEDS: SENNA 8.6 MG TAB (SENOKOT) PO SCH (09:00)
[2019-03-08] MEDS: FLUCONAZOLE 100 MG TAB PO SCH (09:00)
[2019-03-08] MEDS: BISACODYL 10 MG SUPP PR SCH (09:00)
[2019-03-08] MEDS: MAGNESIUM CHLORIDE 64 MG TABCR (SLO MAG) PO SCH (09:00)
[2019-03-08] MEDS: LIDOCAINE 5% OINT 30 GM TOP SCH (09:00)
[2019-03-08 09:02] LABS: INR 3.58; PROTHROMBIN TIME 35.7 SECONDS (11.8-14.0)
--- NOTE | 2019-03-08 16:08 | DSES ---
DATE OF ADMISSION: 03/05/2019 DATE OF DISCHARGE: 03/08/2019 PRIMARY CARE PROVIDER: Dr. Jose D Buck DISCHARGE DIAGNOSES: 1. Fecal impaction. 2. History of colon cancer, status post right hemicolectomy. 3. Bilateral lung adenocarcinoma with recurrence, biopsy proven. 4. Hypertension. 5. History of kidney stones. 6. Atrial fibrillation on chronic anticoagulation. DISCHARGE MEDICATIONS: - milk of magnesia 500 mL twice a day - MiraLAX 17 grams daily - Senokot two tablets twice a day - acetaminophen 325 mg every 4 hours as needed - albuterol two puffs every 4 hours as needed - Coreg 12.5 mg twice a day - Proscar 5 mg daily - Lasix 20 mg daily - hydralazine 10 mg three times a day - magnesium oxide 64 mg daily - Asmanex two puffs inhaled twice a day - multivitamin one tablet daily - Zofran 8 mg every 6 hours as needed - prochlorpemazine 10 mg every 8 hours as needed - tiotropium two puffs daily - warfarin 5 mg once a week and 2.5 mg six times a week The patient is hold his milk of magnesia and Senokot if more than three bowel movements daily. HOSPITAL COURSE: This is an 88-year-old male with a history of colon cancer, status post right hemicolectomy, bilateral lung adenocarcinoma with right hilar mass, prior history of right middle lobe and lower lobe resection, now with recurrent benign prostatic hypertrophy (BPH), who presented with intractable constipation, fecal impaction, status post carboplatin and pemetrexed in January for his recurrence of his stage I lung cancer with plans for pembrolizumab and continued folic acid as an outpatient. He has been tried on Lactulose and Senokot without any improvement. Imaging studies included a CT of the abdomen and pelvis, which shows increased feces throughout the colon, consistent with constipation with impacted feces in the rectum prostatic hyperplasia, nonobstructive, right renal calculi, remote intrathoracic granulomatous infection, contracted gallbladder consistent with chronic cholecystitis, small hiatal hernia, diffuse pancreatic atrophy. The patient had no fever or chills, had no more white count. He was given magnesium citrate, Golytely, had manual disimpaction with significant improvement. Repeat abdominal x-ray shows no visible stool in the colon, bowel gas pattern is improved, few loops of air filled small bowel in the central abdomen and some transverse left colonic gas is seen. Right colonic anastomosis is observed. The patient ambulated well and is stable on 94 to 98% on room air. He is stable for hospital discharge. IMAGING STUDIES: CT of the abdomen and pelvis showed contracted gallbladder with chronic cholecystitis, small hiatal hernia, diffuse pancreatic atrophy, increased feces throughout the colon consistent with constipation, impacted feces in the rectum, mild prostatic hyperplasia, non obstructive right renal calculi.
== END 2019-03-08 09:15 | disposition home or self-care (01) | DRG 389 ==
LOC: M ED 10:54 → M ED INP 18:33 → M MS4PR 22:00
PROVIDERS: ADMIT General Practice; ATTEND General Practice
DX: K56.41 Fecal impaction (principal); C34.01 Malignant neoplasm of right main bronchus; C34.12 Malignant neoplasm of upper lobe, left bronchus or lung; I48.91 Unspecified atrial fibrillation; D69.59 Other secondary thrombocytopenia; J44.9 Chronic obstructive pulmonary disease, unspecified; N40.0 Benign prostatic hyperplasia without lower urinary tract symptoms; I10 Essential (primary) hypertension; Z90.2 Acquired absence of lung [part of]; Z90.49 Acquired absence of other specified parts of digestive tract; Z87.442 Personal history of urinary calculi; Z87.891 Personal history of nicotine dependence; Z85.038 Personal history of other malignant neoplasm of large intestine; Z79.899 Other long term (current) drug therapy; Z79.01 Long term (current) use of anticoagulants

== ENCOUNTER → 2019-04-08 | Outpatient (REF) | payer MEDICARE ==
[~2019-04-08] MED LIST changes: +LACT10SO3 PO; +MIRA3350 PO; +MOM30SS2 PO; +SENN8.6T28 PO; +SENN8.6T58 PO; +SENO8.6T10 PO
== END ==
LOC: M LAB REF 16:16
PROVIDERS: ATTEND Physician Assistant
DX: L02.212 Cutaneous abscess of back [any part, except buttock and flank] (principal)

== ENCOUNTER → 2019-07-05 | Outpatient (CLI) | payer MEDICARE ==
[~2019-07-05] MED LIST changes: +ONDA8TAB10 PO; -ONDA8TAB7 PO
--- NOTE | 2019-07-05 12:46 | REP ---
PET/CT: HISTORY: Restaging left upper lobe lung carcinoma. COMPARISONS: Comparison PET/CT study August 25, 2018. TECHNIQUE: 50 minutes following the intravenous injection of a 8.90 mCi dose of F-18 FDG, three-dimensional PET scintigraphy is acquired from the skull base to the proximal thighs. Triplanar noncontrast CT scanning is acquired through the same anatomic range for attenuation correction, and image registration with scan parameters optimized to minimize radiation exposure to the patient. PET scintigraphy and CT datasets were fused and displayed on a workstation with multiplanar and projection display capability. PET/CT FINDINGS: The head and neck soft tissues are unremarkable. There is evidence of malu progression with hypermetabolic small right superior mediastinal node maximum SUV value 4.05. There is a new malu focus of hypermetabolic uptake adjacent to the aortic arch in the left anterior mediastinum with maximum SUV 11.17. There is new right paratracheal hypermetabolic malu activity, 13.14. Uptake in the left upper lobe nodule is 3.60 today, previously 2.2 in January of 2018 and 3.11 in August 2018. Right precarinal hypermetabolic uptake is seen maximum SUV value 16.42. Right subcarinal hypermetabolic malu activity, 13.81 is seen. Right infrahilar mass lesion is hypermetabolic with maximum SUV value 21.01. There is a mildly hypermetabolic epicardial fat lymph node to the right of midline in the lower hemithorax with maximum SUV value 3.55. There is a hypermetabolic malu focus in the upper abdomen pericaval lymph node with maximum SUV value 7.49. No other abnormal abdominal or pelvic hypermetabolic uptake is seen. No abnormal adrenal uptake is seen. This scan is otherwise unremarkable. Impression: There is evidence of intrathoracic and upper abdominal progression. Electronically Signed by Riki Call MD 07/05/2019 01:41 P
== END ==
LOC: M PLARAD 08:23
PROVIDERS: ATTEND Internal Medicine Pulmonary Disease
DX: C34.12 Malignant neoplasm of upper lobe, left bronchus or lung (principal)
CPT/HCPCS: 78815; A9552

== ENCOUNTER → 2019-08-16 | Outpatient (CLI) | payer MEDICARE ==
[~2019-08-16] MED LIST changes: +FOLI1TAB11 PO
[2019-08-16 08:57] LABS: BASO # 0.1 10^3/uL (0.0-0.2); BASO % 1.1 % (0.0-1.0); EOS # 0.3 10^3/uL (0.0-0.5); EOS % 3.9 % (0.0-3.0); HEMATOCRIT 46.2 % (42.0-52.0); HEMOGLOBIN 14.9 g/dl (13.5-17.5); LYMPH # 1.1 10^3/uL (1.5-5.0); LYMPH % 16.8 % (24.0-44.0); MEAN CORPUSCULAR HEMOGLOBIN 32.6 pg (27.0-33.0); MEAN CORPUSCULAR HGB CONC 32.3 g/dl (32.0-36.5); MEAN CORPUSCULAR VOLUME 101.1 fl (80.0-96.0); MONO # 0.6 10^3/uL (0.0-0.8); NEUTROPHILS # 4.5 10^3/uL (1.5-8.5); NEUTROPHILS % 68.9 % (36.0-66.0); PLATELET COUNT, AUTOMATED 247 10^3/uL (150-450); RED BLOOD COUNT 4.57 10^6/uL (4.30-6.10); WHITE BLOOD COUNT 6.6 10^3/uL (4.0-10.0)
[2019-08-16 09:41] LABS: ALBUMIN 2.9 GM/DL (3.2-5.2); ALT/SGPT 22 U/L (12-78); BILIRUBIN,TOTAL 0.8 MG/DL (0.2-1.0); BLOOD UREA NITROGEN 20 MG/DL (7-18); CALCIUM LEVEL 8.6 MG/DL (8.8-10.2); CARBON DIOXIDE LEVEL 30 MEQ/L (21-32); CHLORIDE LEVEL 106 MEQ/L (98-107); CREATININE FOR GFR 1.21 MG/DL (0.70-1.30); FREE T4 1.02 NG/DL (0.76-1.46); GLOMERULAR FILTRATION RATE > 60.0 (>35); GLUCOSE, FASTING 168 MG/DL (70-100); POTASSIUM SERUM 4.6 MEQ/L (3.5-5.1); SODIUM LEVEL 140 MEQ/L (136-145); TOTAL PROTEIN 6.7 GM/DL (6.4-8.2)
== END ==
LOC: M LAB 08:31
PROVIDERS: ATTEND Internal Medicine Medical Oncology
DX: C34.90 Malignant neoplasm of unspecified part of unspecified bronchus or lung (principal)

== ENCOUNTER → 2019-10-01 | Outpatient (CLI) | payer MEDICARE ==
[~2019-10-01] MED LIST changes: +DECA4TAB PO; +GASTROGRAFIN SOLUTION 30ML (Q9963) As Ordered ONE; +IPRA3SP; +ISOVUE-370 76% 100ML VIAL As Ordered ONE; -LACT10SO29 PO; +LACT20EL PO; +LEVA1TAB2 PO; +MEDR4PAK PO; +PEGPOW PO; +SENN-23 PO
--- NOTE | 2019-10-01 10:08 | REP ---
REASON: History of nonsmall cell lung carcinoma. COMPARISON: Multiple, the latest 02/28/2019. CONTRAST: 100 mL Isovue 370. The right infrahilar soft tissue mass density has improved, however, vascular encasement of right upper lobe pulmonary arteries and veins persist. There is a prominent superior pericardial recess status quo. There is no pericardial effusion. There is mediastinal adenopathy status quo with a large right paratracheal lymph node measuring approximately 1.6 cm in short axis dimension. No pleural effusions have developed. There is right posterior/inferior pleural thickening which has changed little. There is a tiny amount of left pleural fluid without a rancho effusion. Bone window technique throughout the exam shows the osseous structures to be stable and intact. Evaluation of the lung meza shows an increase in size in the left upper lobe spiculated nodule previously measuring 1.9 cm in its greatest dimension, today measuring 2.5 cm in its greatest dimension. There are no other significant changes in the lung meza. IMPRESSION: 1. Although the right hilar/infrahilar mass density has improved, vascular encasement persists and the mediastinal adenopathy is unchanged, particularly affecting the right paratracheal lymph node as described above. It should be stated that due to rather intense spray artifact from high density contrast in the superior vena cava, the mediastinal adenopathy is better imaged today compared to the prior exam when the artifact was greatest. 2. Unchanged engorgement of the superior pericardial recess without a pericardial effusion. 3. Pleural thickening as described above. 4. The left upper lobe spiculated nodule seen on the prior exam where a biopsy clip is identified has increased in size as described above. Followup is recommended. Consider PET/CT at this time. 5. Other findings as described above. Electronically Signed by Johnathan Lyman DO 10/01/2019 02:44 P
--- NOTE | 2019-10-01 10:24 | REP ---
REASON: Followup nonsmall cell carcinoma. All priors were reviewed, the latest contrast enhanced prior is 02/28/2019 with a noncontrast enhanced examination obtained but reviewed. Contrast today 100 mL Isovue 370. The liver, gallbladder, spleen, pancreas, adrenal glands, and kidneys are unchanged. There is cholelithiasis and a separate left renal cyst status quo. The abdominal aorta and para-aortic regions are unchanged. The bowel loops and their mesenteries are essentially unchanged. There is no intra-abdominal mass or adenopathy. There is no free fluid or free air. CT PELVIS: Bowel loops and their mesenteries are essentially unchanged. Once again, spray artifact is seen arising from a left hip prosthesis obscuring some of the pelvis images. There is no evidence of a pelvic mass or adenopathy. There is no free fluid or free air. There is corpora amylacea status quo. Bone window technique throughout the exam shows no significant change in the appearance of the osseous structures. IMPRESSION: Stable CT findings as described above. There is no evidence of acute intra-abdominal or intrapelvic disease. Electronically Signed by Johnathan Lyman DO 10/01/2019 02:45 P
== END ==
LOC: M RAD 07:21
PROVIDERS: ATTEND Internal Medicine Medical Oncology
DX: C34.91 Malignant neoplasm of unspecified part of right bronchus or lung (principal)
CPT/HCPCS: 71260; 74177; Q9963; Q9967

== ENCOUNTER 2019-10-11 18:48 | Inpatient (IN) | payer MEDICARE ==
[~2019-10-11] VITALS: Ht 177.8 cm; Wt 75.0 kg
[2019-10-11] MEDS: BUDESONIDE 0.5 MG/2 ML INHALATION SUSPENSION INH SCH (06:30)
[~2019-10-11 18:48] MED LIST changes: -GASTROGRAFIN SOLUTION 30ML (Q9963) As Ordered ONE; -IPRA3SP; -ISOVUE-370 76% 100ML VIAL As Ordered ONE; -PEGPOW PO; -SENN-23 PO
[2019-10-11] MEDS ORDERED: COMBIVENT RESPIMAT 100-20MCG INHALER 4GM INH ONE (19:30)
[2019-10-11 19:51] LABS: BASO % 0.2 % (0.0-1.0); EOS % 0.1 % (0.0-3.0); HEMATOCRIT 50.3 % (42.0-52.0); HEMOGLOBIN 16.8 g/dl (13.5-17.5); LYMPH # 0.5 10^3/uL (1.5-5.0); LYMPH % 3.5 % (24.0-44.0); MEAN CORPUSCULAR HEMOGLOBIN 33.9 pg (27.0-33.0); MEAN CORPUSCULAR HGB CONC 33.4 g/dl (32.0-36.5); MEAN CORPUSCULAR VOLUME 101.6 fl (80.0-96.0); MONO # 1.5 10^3/uL (0.0-0.8); MONO % 10.6 % (0.0-5.0); NEUTROPHILS # 11.9 10^3/uL (1.5-8.5); NEUTROPHILS % 84.4 % (36.0-66.0); PLATELET COUNT, AUTOMATED 161 10^3/uL (150-450); RED BLOOD COUNT 4.95 10^6/uL (4.30-6.10); WHITE BLOOD COUNT 14.1 10^3/uL (4.0-10.0)
[2019-10-11 20:02] LABS: INR 3.75; PROTHROMBIN TIME 37.1 SECONDS (11.8-14.0)
[2019-10-11 20:03] LABS: PARTIAL THROMBOPLASTIN TIME 35.5 SECONDS (25.0-38.4)
[2019-10-11 20:24] LABS: BILIRUBIN,DIRECT 0.5 MG/DL (0.0-0.2); BILIRUBIN,TOTAL 1.6 MG/DL (0.2-1.0); CK-MB VALUE MASS 2.3 NG/ML (<3.6); MB/CK RELATIVE INDEX 5.61 (< OR =4); TOTAL PROTEIN 6.6 GM/DL (6.4-8.2); TROPONIN I 0.02 NG/ML (< 0.10)
--- NOTE | 2019-10-11 21:10 | ECGEPIP ---
[facility] - ED Test Date: 2019-10-11 Pat Name: ANETA SMITH Department: Room: - Gender: Male [employer]: MR RODASB: [id number] Requested By: Zuly Rodrigez Order Number: [id number] Reading MD: Renato Feliz Measurements Intervals [place] Rate: 92 P: DE: 0 QRS: -49 QRSD: 130 T: 48 QT: 354 QTc: 439 Interpretive Statements ATRIAL FLUTTER Left anterior fascicular block RIGHT BUNDLE BRANCH BLOCK Left ventricular hypertrophy by aVL criteria Nonspecific ST-T wave abnormalities Baseline artifact, but likely similar to tracing done 02-28-19 Electronically Signed on 10-11-2019 21:10:10 EDT by Renato Feliz
[2019-10-11] MEDS ORDERED: cefTRIAXone SOD 1 GM in D5W MINI-BAG PLUS 50 ML IV ONE (22:15)
[2019-10-11] MEDS ORDERED: DOXYCYCLINE HYCLATE 100 MG in D5W MINI-BAG PLUS 100 ML IV ONE (22:15)
[2019-10-11] MEDS ORDERED: ACET1TAB55 PO (22:23)
[2019-10-11] MEDS ORDERED: SENN-23 PO (22:25)
[2019-10-11] MEDS ORDERED: PEGPOW PO (22:25)
[2019-10-11] MEDS ORDERED: IPRA3SP (22:27)
[2019-10-11] MEDS ORDERED: MIRALAX *UNIT DOSE* 17GM PACKET PO PRN (22:45)
[2019-10-11] MEDS ORDERED: SENOKOT S TAB PO PRN (22:45)
[2019-10-11] MEDS ORDERED: IPRATROPIUM 0.5MG/ALBUTEROL 2.5MG INH SOL UD 3ML (DUONEB) INH PRN (22:45)
[2019-10-11] MEDS ORDERED: MOM 30ML SUSPENSION UDC PO PRN (22:45)
--- NOTE | 2019-10-12 00:09 | HPEPDOC ---
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 He has had recurrence of his cancer, in his lungs, and possibly a metastatic lymph node in the abdomen. He has attempted chemotherapy twice, but stopped prematurely both times due to ill side effects. He is scheduled to have another appointment his oncologist in mid November to discuss further treatment options. When he woke up this morning he reports that he was not feeling well, and then had significant shortness of breath throughout the day. He states that he became nauseated and vomited once, and he also had a few bouts of diarrhea today. By the afternoon he stated that he was so weak he was unable to walk to the car, therefore they called EMS and had him transported to the hospital. CODE STATUS: DNR/DNI PAST MEDICAL HISTORY: Right colon cancer with right hemicolectomy in 1999 BPH Kidney and bladder stones Hypertension Atrial fibrillation Adenocarcinoma of the lung PAST SURGICAL HISTORY: Right hemicolectomy 1999 and Right middle and lower lobe lung resection in 2011 Left hip replacement 2008 Bilateral Dupytrens contracture surgery over 10 years ago. 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 Denies alcohol or drug abuse. FAMILY HISTORY: Mother age 97 with breast cancer. Father age 67 with asthma. 2 sisters , they had breast, colon, lung cancer as well. His son who is 61 years old was just diagnosed with colon cancer REVIEW OF SYSTEMS: Constitutional: Patient denies fevers, chills, night sweats, recent weight gain/loss. HEENT: Patient denies blurred or double vision, transient visual disturbances, postnasal drip, epistaxis, sore throat, difficulty chewing or swallowing food. Cardiovascular: Patient denies chest discomfort/pain, palpitations, orthopnea, edema of the extremities, claudication. Respiratory: Patient admits to dyspnea, wheezing, cough, sputum production. No hemoptysis Gastrointestinal: Patient admits to one episode of nausea, vomiting although he does not feel so now, as a matter fact he would like something to eat. He did have diarrhea today. Denies abdominal pain, melena, hematochezia, hematemesis, jaundice. PHYSICAL EXAMINATION: General: Awake, alert, oriented 3. He does not appear to be in any acute distress at this time. HEENT: Head normocephalic atraumatic, conjunctiva are pink, sclera are nonicteric, buccal mucosa is pink and moist with no lesions in the oropharynx. 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 Respiratory: No lung sounds in the right lower lung field. Significant crackles and wheezing throughout the remaining lung meza bilaterally. Cardiovascular: Distant heart sounds, also made more difficult to auscultate because of lung sounds. Abdomen: Soft, nontender, nondistended, no hepatosplenomegaly appreciated. Bowel sounds present. Extremities: 2+ pulses in the radial and dorsalis pedis bilaterally. No evidence of clubbing or cyanosis. ELECTROCARDIOGRAM: He does have baseline artifact, although he does appear to have sinus rhythm at this time. Right bundle branch block with left anterior fascicular block. Nonspecific ST-T wave abnormalities. IMAGING: Chest x-ray does appear to have consolidation in the left lower lobe. Official read is not available at this time. ASSESSMENT: Community-acquired pneumonia, in the setting of adenocarcinoma of the lung, as well as prior history of right middle and lower lobe resection. - We will treat empirically with Rocephin and doxycycline, and will also continue with his home dose of inhaled corticosteroids and tiotropium bromide, with duo nebs available when necessary for wheezing or shortness of breath. He does not meet sirs criteria for sepsis. Hypertension -Continue home dose of hydralazine and carvedilol History of atrial fibrillation -Continue home dose of warfarin for now. His INR is above target, this may need readjustment, will recheck. BPH -Continue home dose of finasteride DVT prophylaxis -Continue home dose of warfarin DISPO: Admit to [facility] Vital Signs Vital Signs Date Time Temp Pulse Resp B/P (MAP) Pulse Ox O2 Delivery O2 Flow Rate FiO2 10/11/19 22:45 91 18 140/83 (102) 94 Nasal Cannula 2.0 10/11/19 18:55 97.2 Laboratory Data Labs 24H Laboratory Tests 2 10/11/19 18:53: Immature Granulocyte % (Auto) 1.2, Neutrophils (%) (Auto) 84.4H, Lymphocytes (%) (Auto) 3.5L, Monocytes (%) (Auto) 10.6H, Eosinophils (%) (Auto) 0.1, Basophils (%) (Auto) 0.2, Neutrophils # (Auto) 11.9H, Lymphocytes # (Auto) 0.5L, Monocytes # (Auto) 1.5H, Eosinophils # (Auto) 0.0, Basophils # (Auto) 0.0, Nucleated Red Blood Cells % (auto) 0.2H, Lactic Acid Level 2.3*H 10/11/19 19:23: POC Glucose (Misc Panel) 131H, POC Sodium (Misc Panel) 137, POC Potassium (Misc Panel) 4.1, POC Chloride (Misc Panel) 99, POC Total CO2 (Misc Panel) 25.0, POC Blood Urea Nitrogen (Misc Panel 23, POC Ionized Calcium (Misc Panel) 4.3L, POC Creatinine (Misc Panel) 0.7, POC Hematocrit (Misc Panel) 53.0H 10/11/19 19:31: Prothrombin Time 37.1H, Prothromb Time International Ratio 3.75, Activated Partial Thromboplast Time 35.5, Total Bilirubin 1.6H, Direct Bilirubin 0.5H, Aspartate Amino Transf (AST/SGOT) 48H, Alanine Aminotransferase (ALT/SGPT) 65, Alkaline Phosphatase 83, Total Creatine Kinase 41, Creatine Kinase MB 2.3, Creatine Kinase MB Relative Index 5.61H, Troponin I 0.02, Total Protein 6.6, Albumin 3.0L, Albumin/Globulin Ratio 0.8, Amylase Level 63, Lipase 122 10/11/19 20:53: POC Total CO2 (Misc Panel) 27.0, POC pH (Misc Panel) 7.418, POC Base Excess (Misc Panel) 1.0, POC Saturated Percent O2 (Misc) 95, POC pO2 (Misc Panel) 74.0L, POC pCO2 (Misc Panel) 39.6, POC HCO3 (Misc Panel) 25.6 CBC/BMP Laboratory Tests 10/11/19 18:53 Microbiology Microbiology 10/11/19 Respiratory Virus Panel (PCR) (ELI) - Final, Complete 10/11/19 Blood Culture, Received Pending 10/11/19 Blood Culture, Received Pending Home Medications Scheduled Acetaminophen (Acetaminophen) 325 Mg Tablet, 325 MG PO QHS Carvedilol (Carvedilol) 12.5 Mg Tab, 12.5 MG PO BID Finasteride (Proscar) 5 Mg Tab, 5 MG PO DAILY Hydralazine HCl (Hydralazine HCl) 10 Mg Tablet, 10 MG PO TID Ipratropium [place] (Ipratropium [place]) 30 Ml [place], 2 SPRAY NA BID Magnesium Chloride (Mag64) 64 Mg Tabcr, 64 MG PO DAILY Mometasone Furoate (Asmanex Hfa) 100 Mcg/Act Hfa.aer.ad, 2 PUFF INH BID Multivitamin (Multivitamins) 1 Each Capsule, 1 CAP PO DAILY Tiotropium Br/Olodaterol HCl (Stiolto Respimat Inhal [place]) 4 Gm Mist.inhal, 2 PUFFS INH DAILY Warfarin Sodium (Warfarin Sodium) 5 Mg Tab, 5 MG PO 2XWK TAKES ON FRIDAY, FRIDAY Warfarin Sodium (Warfarin Sodium) 2.5 Mg Tablet, 2.5 MG PO 5XW TAKES FRIDAY, FRIDAY, FRIDAY, FRIDAY, FRIDAY Scheduled PRN Albuterol Sulfate (Proair Hfa) 108 Mcg/Act Aer, 2 PUFF INH Q4HP PRN for SOB/WHEEZING Furosemide (Furosemide) 20 Mg Tablet, 20 MG PO DAILY PRN for edema Polyethylene Glycol 3350 (Polyethylene Glycol 3350) 510 Gm Powder, 17 GRAMS PO DAILYPRN PRN for CONSTIPATION Sennosides/Docusate Sodium (Senna-S Tablet) 1 Each Tablet, 1 TAB PO BIDP PRN for CONSTIPATION Allergies Coded Allergies: No Known Drug Allergies (Verified Allergy, Unknown, 09/17/18) A-FIB/CHADSVASC A-FIB History Current/History of A-Fib/PAF?: Yes Current PO Anticoag Therapy: Yes SOFIE VILLAGRAN DO Oct 12, 2019 00:09
[2019-10-12 00:35] VITALS: BP 128/77
[2019-10-12] MEDS: CARVedilol 12.5 MG TAB PO SCH ×3 (01:00→20:59)
[2019-10-12] MEDS: ACETAMINOPHEN 325 MG TAB PO SCH ×2 (01:01→21:00)
[2019-10-12] MEDS: **hydrALAZINE** 10 MG TAB PO SCH ×4 (01:01→20:59)
[2019-10-12] MEDS: FINASTERIDE 5 MG TAB PO SCH ×2 (01:01→20:58)
[2019-10-12] MEDS ORDERED: NS 1,000 ML IV SCH (02:00)
--- NOTE | 2019-10-12 04:37 | REP ---
CHEST, SINGLE VIEW: Single view of the chest is performed and compared to prior studies, most recently a CT of the chest 10/01/2019. Right hemidiaphragm is again elevated. There is a nodular opacity at the right lung base, which is unchanged. There is a nodular opacity in the left upper lobe, which is unchanged, with two associated biopsy clips. There is patchy infiltrate in the left lung base. The heart and mediastinum are unchanged. IMPRESSION: Left basilar infiltrate. Electronically Signed by Giovani Delacruz MD 10/13/2019 03:58 P
[2019-10-12 06:00] VITALS: BP 106/57
[2019-10-12 06:31] LABS: HEMATOCRIT 44.8 % (42.0-52.0); HEMOGLOBIN 14.9 g/dl (13.5-17.5); MEAN CORPUSCULAR HEMOGLOBIN 33.8 pg (27.0-33.0); MEAN CORPUSCULAR HGB CONC 33.3 g/dl (32.0-36.5); MEAN CORPUSCULAR VOLUME 101.6 fl (80.0-96.0); PLATELET COUNT, AUTOMATED 139 10^3/uL (150-450); RED BLOOD COUNT 4.41 10^6/uL (4.30-6.10); WHITE BLOOD COUNT 25.7 10^3/uL (4.0-10.0)
[2019-10-12 06:47] LABS: INR 3.47; PROTHROMBIN TIME 34.9 SECONDS (11.8-14.0)
[2019-10-12 06:54] LABS: BLOOD UREA NITROGEN 24 MG/DL (7-18); CALCIUM LEVEL 7.9 MG/DL (8.8-10.2); CARBON DIOXIDE LEVEL 28 MEQ/L (21-32); CHLORIDE LEVEL 103 MEQ/L (98-107); CREATININE FOR GFR 1.04 MG/DL (0.70-1.30); GLOMERULAR FILTRATION RATE > 60.0 (>35); GLUCOSE, FASTING 125 MG/DL (70-100); POTASSIUM SERUM 4.3 MEQ/L (3.5-5.1); SODIUM LEVEL 139 MEQ/L (136-145)
[2019-10-12] MEDS: BUDESONIDE 0.5 MG/2 ML INHALATION SUSPENSION INH SCH ×2 (07:23→20:27)
[2019-10-12] MEDS: TIOTROPIUM INHALER/CAPSULE (SPIRIVA) INH SCH (07:23)
--- NOTE | 2019-10-12 08:34 | IPNPDOC ---
Date Seen The patient was seen on 10/12/19. Progress Note SUBJECTIVE: 89-year-old male with past medical history of metastatic lung cancer status post right middle and right lower lobe lobectomy, currently on chemotherapy and immunotherapy, colon cancer status post hemicolectomy, hypertension and atrial fibrillation (on Coumadin) is admitted for possible pneumonia. Patient reports dyspnea worsening over the past few days, denies any cough or fever at home. Patient is currently comfortable in bed, without additional complaints, reports minimal improvement in dyspnea since yesterday. He reports fatigue and diarrhea for the past few days. He denies any chest pain, abdominal pain or urinary complaints at this time. 10 point review of system is negative except for above PHYSICAL EXAMINATION: VITAL SIGNS: Please see below. GENERAL: No distress, frail HEENT: Normocephalic, atraumatic, moist mucous membranes NECK: Supple CARDIOVASCULAR EXAMINATION: S1, S2, no murmurs RESPIRATORY EXAMINATION: Scattered rhonchi, diminished in the bases bilaterally, no wheezing ABDOMINAL EXAMINATION: Soft, nontender, nondistended, positive bowel sounds EXTREMITIES: Right lower extremity cool to touch below the knee when compared to left, right dorsalis pedis pulse is not palpable SKIN: No rash NEUROLOGICAL EXAMINATION: Alert and oriented 3, no focal deficits PSYCHIATRIC EXAMINATION: Calm and cooperative LABORATORY DATA, IMAGING STUDIES, MICROBIOLOGY: Please see below. ASSESSMENT AND PLAN: A 89-year-old male with multiple medical comorbidities is admitted for possible pneumonia. PROBLEMS: 1. Pneumonia: Patient with worsening dyspnea, chest x-ray showing left basilar infiltrate, ceftriaxone/Doxy, pro-calcitonin and blood cultures pending, supplemental oxygen as needed to maintain O2 sats between 88-92%, lactate elevated, exacerbated by diarrhea, continue IV hydration. 2. Atrial fibrillation: On Coumadin, INR supratherapeutic at this time, we'll hold tonight's dose. 3. Hypertension: Continue hydralazine. 4. Metastatic lung cancer: Status post right middle and lower lobe lobectomy, on chemotherapy and immunotherapy, outpatient follow-up. 5. Cold right lower extremity: Right lower extremity below the knee is cool to touch when compared to left side, unable to palpate right dorsalis pedis pulse, patient asymptomatic, lower extremity arterial ultrasound ordered, will consider vascular surgery consultation if needed. DVT prophylaxis: Supratherapeutic INR. GI prophylaxis: Not needed VS, I&O, 24H, Fishbone Vital Signs/I&O Vital Signs Date Time Temp Pulse Resp B/P (MAP) Pulse Ox O2 Delivery O2 Flow Rate FiO2 10/12/19 06:00 97.8 74 16 106/57 (73) 94 Room Air 10/12/19 01:31 2.0 I&O- Last 24 Hours up to 6 AM 10/12/19 06:00 Intake Total 390 ml Output Total 0 ml Balance 390 ml Laboratory Data 24H LABS Laboratory Tests 2 10/11/19 18:53: Immature Granulocyte % (Auto) 1.2, Neutrophils (%) (Auto) 84.4H, Lymphocytes (%) (Auto) 3.5L, Monocytes (%) (Auto) 10.6H, Eosinophils (%) (Auto) 0.1, Basophils (%) (Auto) 0.2, Neutrophils # (Auto) 11.9H, Lymphocytes # (Auto) 0.5L, Monocytes # (Auto) 1.5H, Eosinophils # (Auto) 0.0, Basophils # (Auto) 0.0, Nucleated Red Blood Cells % (auto) 0.2H, Lactic Acid Level 2.3*H 10/11/19 19:23: POC Glucose (Misc Panel) 131H, POC Sodium (Misc Panel) 137, POC Potassium (Misc Panel) 4.1, POC Chloride (Misc Panel) 99, POC Total CO2 (Misc Panel) 25.0, POC Blood Urea Nitrogen (Misc Panel 23, POC Ionized Calcium (Misc Panel) 4.3L, POC Creatinine (Misc Panel) 0.7, POC Hematocrit (Misc Panel) 53.0H 10/11/19 19:31: Prothrombin Time 37.1H, Prothromb Time International Ratio 3.75, Activated Partial Thromboplast Time 35.5, Total Bilirubin 1.6H, Direct Bilirubin 0.5H, Aspartate Amino Transf (AST/SGOT) 48H, Alanine Aminotransferase (ALT/SGPT) 65, Alkaline Phosphatase 83, Total Creatine Kinase 41, Creatine Kinase MB 2.3, Creatine Kinase MB Relative Index 5.61H, Troponin I 0.02, Total Protein 6.6, A lbumin 3.0L, Albumin/Globulin Ratio 0.8, Amylase Level 63, Lipase 122 10/11/19 20:53: POC Total CO2 (Misc Panel) 27.0, POC pH (Misc Panel) 7.418, POC Base Excess (Misc Panel) 1.0, POC Saturated Percent O2 (Misc) 95, POC pO2 (Misc Panel) 74.0L, POC pCO2 (Misc Panel) 39.6, POC HCO3 (Misc Panel) 25.6 10/12/19 00:53: Lactic Acid Followup at 4 Hours 2.7*H 10/12/19 05:43: Nucleated Red Blood Cells % (auto) 0.0, Prothrombin Time 34.9H, Prothromb Time International Ratio 3.47, Anion Gap 8, Glomerular Filtration Rate > 60.0, Calcium Level 7.9L CBC/BMP Laboratory Tests 10/11/19 18:53 10/12/19 05:43 Microbiology Microbiology 10/11/19 Respiratory Virus Panel (PCR) (ELI) - Final, Complete 10/11/19 Blood Culture, Received Pending 10/11/19 Blood Culture, Received Pending KENNY MARTE MD Oct 12, 2019 08:34
[2019-10-12] MEDS: IPRATROPIUM 0.03% NASAL SPRAY 30 ML (ATROVENT) SCH ×2 (09:00→21:00)
[2019-10-12] MEDS: MAGNESIUM CHLORIDE 64 MG TABCR (SLO MAG) PO SCH (09:20)
[2019-10-12] MEDS: MULTIVITAMINS/MINERALS THERAP 1 TAB PO SCH (09:20)
[2019-10-12] MEDS: cefTRIAXone SOD 1 GM in D5W MINI-BAG PLUS 50 ML IV SCH (09:22)
[2019-10-12] MEDS: DOXYCYCLINE HYCLATE 100 MG in D5W MINI-BAG PLUS 100 ML IV SCH ×2 (10:52→22:20)
[2019-10-12] MEDS ORDERED: WARFARIN SOD 2.5MG TAB PO SCH (17:00)
[2019-10-12 22:00] VITALS: BP 135/79
--- NOTE | 2019-10-13 02:37 | REP ---
DUPLEX DOPPLER ARTERIAL ULTRASOUND BILATERAL LOWER EXTREMITIES: Real-time ultrasound evaluation and duplex Doppler interrogation of bilateral lower extremity arterial systems is performed. Moderate plaque is seen bilaterally diffusely. There are diffuse biphasic waveforms bilaterally. There is possible some mild stenosis of the bilateral profunda arteries proximally. There appears to be mild stenosis of the mid right superficial femoral artery. There also appears to be mild stenosis of the proximal right posterior tibial artery. I suspect mild stenosis of the let popliteal artery. Anterior and posterior tibial arteries appear patent into the bilateral feet. RIGHT PEAK LEFT PEAK SYSTOLIC SYSTOLIC VELOCITY VELOCITY Common femoral artery 106 cm/s 75 cm/s Profunda 154 122 Proximal SFA 92 93 Mid SFA 152 81 Distal SFA 65 65 Popliteal 66 95 Proximal ARCHANA 62 72 Tibioperoneal trunk 26 104 Proximal MAINTENANCE SUPERVISOR ELECTRICAL 120 42 Distal MAINTENANCE SUPERVISOR ELECTRICAL 37 64 Distal ARCHANA 41 32 Electronically Signed by Giovani Delacruz MD 10/13/2019 05:00 P
[2019-10-13 06:00] VITALS: BP 124/69
[2019-10-13 06:32] LABS: HEMATOCRIT 41.5 % (42.0-52.0); HEMOGLOBIN 13.8 g/dl (13.5-17.5); MEAN CORPUSCULAR HEMOGLOBIN 34.8 pg (27.0-33.0); MEAN CORPUSCULAR HGB CONC 33.3 g/dl (32.0-36.5); MEAN CORPUSCULAR VOLUME 104.8 fl (80.0-96.0); PLATELET COUNT, AUTOMATED 112 10^3/uL (150-450); RED BLOOD COUNT 3.96 10^6/uL (4.30-6.10); WHITE BLOOD COUNT 13.1 10^3/uL (4.0-10.0)
[2019-10-13 06:51] LABS: INR 2.54; PROTHROMBIN TIME 27.2 SECONDS (11.8-14.0)
[2019-10-13 06:53] LABS: BLOOD UREA NITROGEN 26 MG/DL (7-18); CALCIUM LEVEL 8.4 MG/DL (8.8-10.2); CARBON DIOXIDE LEVEL 30 MEQ/L (21-32); CHLORIDE LEVEL 107 MEQ/L (98-107); CREATININE FOR GFR 0.86 MG/DL (0.70-1.30); GLOMERULAR FILTRATION RATE > 60.0 (>35); GLUCOSE, FASTING 112 MG/DL (70-100); POTASSIUM SERUM 4.3 MEQ/L (3.5-5.1); SODIUM LEVEL 141 MEQ/L (136-145)
[2019-10-13] MEDS: BUDESONIDE 0.5 MG/2 ML INHALATION SUSPENSION INH SCH ×2 (07:45→19:52)
[2019-10-13] MEDS: TIOTROPIUM INHALER/CAPSULE (SPIRIVA) INH SCH (07:45)
[2019-10-13] MEDS: MAGNESIUM CHLORIDE 64 MG TABCR (SLO MAG) PO SCH (08:50)
[2019-10-13] MEDS: cefTRIAXone SOD 1 GM in D5W MINI-BAG PLUS 50 ML IV SCH (08:51)
[2019-10-13] MEDS: MULTIVITAMINS/MINERALS THERAP 1 TAB PO SCH (08:51)
[2019-10-13] MEDS: CARVedilol 12.5 MG TAB PO SCH ×2 (08:53→21:40)
[2019-10-13] MEDS: **hydrALAZINE** 10 MG TAB PO SCH ×3 (08:54→21:40)
[2019-10-13] MEDS: IPRATROPIUM 0.03% NASAL SPRAY 30 ML (ATROVENT) SCH ×2 (08:55→21:00)
[2019-10-13] MEDS: DOXYCYCLINE HYCLATE 100 MG in D5W MINI-BAG PLUS 100 ML IV SCH ×2 (09:25→21:38)
--- NOTE | 2019-10-13 12:30 | IPNPDOC ---
Date Seen The patient was seen on 10/13/19. Progress Note SUBJECTIVE: 89-year-old male with past medical history of metastatic lung cancer status post right middle and right lower lobe lobectomy, currently on chemotherapy and immunotherapy, colon cancer status post hemicolectomy, hypertension and atrial fibrillation (on Coumadin) is admitted for pneumonia. Patient doing well today, cough and dyspnea are minimal, no additional complaints. 10 point review of system is negative except for above PHYSICAL EXAMINATION: VITAL SIGNS: Please see below. GENERAL: No distress, frail HEENT: Normocephalic, atraumatic, moist mucous membranes NECK: Supple CARDIOVASCULAR EXAMINATION: S1, S2, no murmurs RESPIRATORY EXAMINATION: Scattered rhonchi, diminished in the bases bilaterally, no wheezing ABDOMINAL EXAMINATION: Soft, nontender, nondistended, positive bowel sounds EXTREMITIES: Right lower extremity cool to touch below the knee when compared to left, right dorsalis pedis pulse is not palpable SKIN: No rash NEUROLOGICAL EXAMINATION: Alert and oriented 3, no focal deficits PSYCHIATRIC EXAMINATION: Calm and cooperative LABORATORY DATA, IMAGING STUDIES, MICROBIOLOGY: Please see below. ASSESSMENT AND PLAN: A 89-year-old male with multiple medical comorbidities is admitted for possible pneumonia. PROBLEMS: 1. Pneumonia: Clinically improving, continue ceftriaxone/Doxy, pro-calcitonin significantly elevated, blood cultures negative to date, supplemental oxygen as needed to maintain O2 sats between 88-92%. 2. Atrial fibrillation: INR is now within therapeutic range, restart Coumadin. 3. Hypertension: Continue hydralazine. 4. Metastatic lung cancer: Status post right middle and lower lobe lobectomy, on chemotherapy and immunotherapy, outpatient follow-up. DVT prophylaxis: Therapeutic INR. GI prophylaxis: Not needed VS, I&O, 24H, Fishbone Vital Signs/I&O Vital Signs Date Time Temp Pulse Resp B/P (MAP) Pulse Ox O2 Delivery O2 Flow Rate FiO2 10/13/19 08:54 128/69 10/13/19 08:53 68 10/13/19 08:00 2.0 10/13/19 06:00 98.1 18 95 Nasal Cannula I&O- Last 24 Hours up to 6 AM 10/13/19 06:00 Intake Total 1200 ml Output Total 300 ml Balance 900 ml Laboratory Data 24H LABS Laboratory Tests 2 10/13/19 05:46: Nucleated Red Blood Cells % (auto) 0.0, Prothrombin Time 27.2H, Prothromb Time International Ratio 2.54, Anion Gap 4L, Glomerular Filtration Rate > 60.0, Calcium Level 8.4L CBC/BMP Laboratory Tests 10/13/19 05:46 Microbiology Microbiology 10/11/19 Respiratory Virus Panel (PCR) (ELI) - Final, Complete 10/11/19 Blood Culture - Preliminary, Resulted No growth after 24 hours . All specim... 10/11/19 Blood Culture - Preliminary, Resulted No growth after 24 hours . All specim... KENNY MARTE MD Oct 13, 2019 12:30
[2019-10-13 14:33] VITALS: BP 129/71
[2019-10-13] MEDS ORDERED: WARFARIN SOD 5MG TAB PO SCH (17:00)
[2019-10-13] MEDS: FINASTERIDE 5 MG TAB PO SCH (21:39)
[2019-10-13] MEDS: ACETAMINOPHEN 325 MG TAB PO SCH (21:39)
[2019-10-13 22:00] VITALS: BP 143/86
[2019-10-14 06:00] VITALS: BP 128/74
[2019-10-14 07:03] LABS: HEMATOCRIT 40.6 % (42.0-52.0); HEMOGLOBIN 13.4 g/dl (13.5-17.5); MEAN CORPUSCULAR HEMOGLOBIN 34.2 pg (27.0-33.0); MEAN CORPUSCULAR VOLUME 103.6 fl (80.0-96.0); PLATELET COUNT, AUTOMATED 129 10^3/uL (150-450); RED BLOOD COUNT 3.92 10^6/uL (4.30-6.10); WHITE BLOOD COUNT 12.5 10^3/uL (4.0-10.0)
[2019-10-14 07:13] LABS: INR 1.93; PROTHROMBIN TIME 21.8 SECONDS (11.8-14.0)
[2019-10-14 07:26] LABS: BLOOD UREA NITROGEN 22 MG/DL (7-18); CALCIUM LEVEL 8.2 MG/DL (8.8-10.2); CARBON DIOXIDE LEVEL 30 MEQ/L (21-32); CHLORIDE LEVEL 106 MEQ/L (98-107); CREATININE FOR GFR 0.72 MG/DL (0.70-1.30); GLOMERULAR FILTRATION RATE > 60.0 (>35); GLUCOSE, FASTING 97 MG/DL (70-100); POTASSIUM SERUM 4.3 MEQ/L (3.5-5.1); SODIUM LEVEL 142 MEQ/L (136-145)
[2019-10-14] MEDS: TIOTROPIUM INHALER/CAPSULE (SPIRIVA) INH SCH (08:47)
[2019-10-14] MEDS: BUDESONIDE 0.5 MG/2 ML INHALATION SUSPENSION INH SCH (08:47)
[2019-10-14] MEDS: IPRATROPIUM 0.03% NASAL SPRAY 30 ML (ATROVENT) SCH ×2 (09:00→09:25)
[2019-10-14] MEDS: MAGNESIUM CHLORIDE 64 MG TABCR (SLO MAG) PO SCH (09:23)
[2019-10-14] MEDS: MULTIVITAMINS/MINERALS THERAP 1 TAB PO SCH (09:24)
[2019-10-14] MEDS: cefTRIAXone SOD 1 GM in D5W MINI-BAG PLUS 50 ML IV SCH (09:25)
[2019-10-14] MEDS: **hydrALAZINE** 10 MG TAB PO SCH ×2 (09:25→16:17)
[2019-10-14] MEDS: CARVedilol 12.5 MG TAB PO SCH (09:25)
[2019-10-14] MEDS ORDERED: LevoFLOXacin 750 MG TABLET PO ONE (11:45)
[2019-10-14] MEDS ORDERED: LEVA750T7 PO (13:30)
--- NOTE | 2019-10-14 13:33 | DS.PDOC ---
Discharge Summary General Date of Admission Oct 11, 2019 at 22:45 Date of Discharge 10/14/2019 Attending Physician: KENNY MARTE MD Discharge Summary PROCEDURES PERFORMED DURING STAY: None. ADMITTING DIAGNOSES: 1. Pneumonia, hypoxemic respiratory failure. DISCHARGE DIAGNOSES: 1. Pneumonia, hypoxemic respiratory failure. COMPLICATIONS/CHIEF COMPLAINT: Pneumonia. HISTORY OF PRESENT ILLNESS: 89-year-old male was admitted for left lower lobe pneumonia and hypoxemic respiratory failure. Patient has history of metastatic lung cancer status post right middle lower lobe lobectomy. Patient has been treated with ceftriaxone and doxycycline with good clinical response, today, he is close to his baseline, without any additional complaints. He has continued to require supplemental oxygen, evaluated for home oxygen, he has qualified, to be arranged by social media analyst prior to discharge. Patient is advised to follow with PCP and value stream manager after discharge. HOSPITAL COURSE: As above. DISCHARGE MEDICATIONS: Please see below. ALLERGIES: Please see below. PHYSICAL EXAMINATION: VITAL SIGNS: Please see below. GENERAL: No distress, frail HEENT: Normocephalic, atraumatic, moist mucous membranes NECK: Supple CARDIOVASCULAR EXAMINATION: S1, S2, no murmurs RESPIRATORY EXAMINATION: Scattered rhonchi, diminished in the bases bilaterally, no wheezing ABDOMINAL EXAMINATION: Soft, nontender, nondistended, positive bowel sounds EXTREMITIES: Right lower extremity cool to touch below the knee when compared to left, right dorsalis pedis pulse is not palpable SKIN: No rash NEUROLOGICAL EXAMINATION: Alert and oriented 3, no focal deficits PSYCHIATRIC EXAMINATION: Calm and cooperative LABORATORY DATA: Please see below. IMAGING: Chest x-ray showing left lower lobe pneumonia PROGNOSIS: Fair ACTIVITY: As tolerated. DIET: Cardiac DISCHARGE PLAN: Follow with PCP and value stream manager in 1-2 weeks DISPOSITION: Home with services. DISCHARGE INSTRUCTIONS: 1. As above. DISCHARGE CONDITION: Stable. TIME SPENT ON DISCHARGE: Greater than 32 minutes. Vital Signs/I&Os Vital Signs Date Time Temp Pulse Resp B/P (MAP) Pulse Ox O2 Delivery O2 Flow Rate FiO2 10/14/19 09:25 145/75 10/14/19 09:25 78 10/14/19 09:00 2.0 10/14/19 06:00 97.1 18 99 Nasal Cannula I&O- Last 24 Hours up to 6 AM 10/14/19 06:00 Intake Total 1970 ml Output Total 1250 ml Balance 720 ml Laboratory Data Labs 24H Laboratory Tests 2 10/14/19 06:28: Nucleated Red Blood Cells % (auto) 0.0, Prothrombin Time 21.8H, Prothromb Time International Ratio 1.93, Anion Gap 6L, Glomerular Filtration Rate > 60.0, Calcium Level 8.2L CBC/BMP Laboratory Tests 10/14/19 06:28 Microbiology Microbiology 10/11/19 Respiratory Virus Panel (PCR) (ELI) - Final, Complete 10/11/19 Blood Culture - Preliminary, Resulted No Growth after 48 hours. All Specime... 10/11/19 Blood Culture - Preliminary, Resulted No Growth after 48 hours. All Specime... Discharge Medications Scheduled Acetaminophen (Acetaminophen) 325 Mg Tablet, 325 MG PO QHS, (Reported) Carvedilol (Carvedilol) 12.5 Mg Tab, 12.5 MG PO BID, (Reported) Finasteride (Proscar) 5 Mg Tab, 5 MG PO DAILY, (Reported) Hydralazine HCl (Hydralazine HCl) 10 Mg Tablet, 10 MG PO TID, (Reported) Ipratropium [place] (Ipratropium [place]) 30 Ml [place], 2 SPRAY NA BID, (Reported) Levofloxacin (Levaquin) 750 Mg Tablet, 750 MG PO DAILY@06 Magnesium Chloride (Mag64) 64 Mg Tabcr, 64 MG PO DAILY, (Reported) Mometasone Furoate (Asmanex Hfa) 100 Mcg/Act Hfa.aer.ad, 2 PUFF INH BID, (Reported) Multivitamin (Multivitamins) 1 Each Capsule, 1 CAP PO DAILY, (Reported) Tiotropium Br/Olodaterol HCl (Stiolto Respimat Inhal [place]) 4 Gm Mist.inhal, 2 PUFFS INH DAILY, (Reported) Warfarin Sodium (Warfarin Sodium) 5 Mg Tab, 5 MG PO 2XWK, (Reported) TAKES ON FRIDAY, FRIDAY Warfarin Sodium (Warfarin Sodium) 2.5 Mg Tablet, 2.5 MG PO 5XW, (Reported) TAKES FRIDAY, FRIDAY, FRIDAY, FRIDAY, FRIDAY Scheduled PRN Albuterol Sulfate (Proair Hfa) 108 Mcg/Act Aer, 2 PUFF INH Q4HP PRN for SOB/WHEEZING, (Reported) Furosemide (Furosemide) 20 Mg Tablet, 20 MG PO DAILY PRN for edema, (Reported) Polyethylene Glycol 3350 (Polyethylene Glycol 3350) 510 Gm Powder, 17 GRAMS PO DAILYPRN PRN for CONSTIPATION, (Reported) Sennosides/Docusate Sodium (Senna-S Tablet) 1 Each Tablet, 1 TAB PO BIDP PRN for CONSTIPATION, (Reported) Allergies Coded Allergies: No Known Drug Allergies (Verified Allergy, Unknown, 09/17/18) KENNY MARTE MD Oct 14, 2019 13:33
[2019-10-14] MEDS ORDERED: FLEET ENEMA PR ONE (15:00)
[2019-10-14 16:17] VITALS: BP 151/90
[2019-10-15] MEDS ORDERED: LevoFLOXacin 750 MG TABLET PO SCH (06:00)
== END 2019-10-14 17:07 | disposition home health service (06) | DRG 193 ==
LOC: M ED 18:48 → EDBD 18:48 → M ED INP 22:45 → ENRESERV 10-12 00:07 → M MS5PR 10-12 00:35
PROVIDERS: ADMIT Neuromusculoskeletal Medicine & OMM; ATTEND Internal Medicine
DX: J18.9 Pneumonia, unspecified organism (principal); J96.91 Respiratory failure, unspecified with hypoxia; C34.90 Malignant neoplasm of unspecified part of unspecified bronchus or lung; C77.2 Secondary and unspecified malignant neoplasm of intra-abdominal lymph nodes; I48.91 Unspecified atrial fibrillation; Z79.899 Other long term (current) drug therapy; N40.0 Benign prostatic hyperplasia without lower urinary tract symptoms; Z96.642 Presence of left artificial hip joint; Z87.891 Personal history of nicotine dependence; I10 Essential (primary) hypertension; Z79.01 Long term (current) use of anticoagulants

== ENCOUNTER 2020-03-18 09:17 | Emergency (ER) | payer MEDICARE ==
[~2020-03-18] VITALS: Ht 177.8 cm; Wt 73.2 kg
[~2020-03-18 09:17] MED LIST changes: +IPRA3SP; +LEVA750T7 PO; +PEGPOW PO; +SENN-23 PO
[2020-03-18] MEDS ORDERED: **hydrALAZINE** 10 MG TAB PO ONE (10:00)
[2020-03-18] MEDS ORDERED: CARVedilol 12.5 MG TAB PO ONE (10:00)
[2020-03-18 10:24] LABS: VENOUS BASE EXCESS 1.9 (-2.0-2.0); VENOUS HCO3 29.5 MEQ/L (23.0-27.0); VENOUS O2 SATURATION 85.8 % (60.0-80.0); VENOUS PARTIAL PRESSURE O2 53.9 mmHg (30.0-50.0); VENOUS PH 7.324 UNITS (7.330-7.430); VENOUS STANDARD HCO3 25.8 MEQ/L; VENOUS TOTAL CO2 31.3 MEQ/L (24.0-28.0)
[2020-03-18 10:32] LABS: BASO # 0.1 10^3/uL (0.0-0.2); BASO % 0.4 % (0.0-1.0); EOS # 0.1 10^3/uL (0.0-0.5); EOS % 0.8 % (0.0-3.0); HEMOGLOBIN 14.1 g/dl (13.5-17.5); LYMPH % 8.1 % (24.0-44.0); MEAN CORPUSCULAR HEMOGLOBIN 32.8 pg (27.0-33.0); MEAN CORPUSCULAR VOLUME 102.3 fl (80.0-96.0); MONO # 1.1 10^3/uL (0.0-0.8); MONO % 9.7 % (0.0-5.0); NEUTROPHILS # 9.4 10^3/uL (1.5-8.5); NEUTROPHILS % 80.6 % (36.0-66.0); PLATELET COUNT, AUTOMATED 302 10^3/uL (150-450); WHITE BLOOD COUNT 11.7 10^3/uL (4.0-10.0)
[2020-03-18 10:49] LABS: INR 3.3; PROTHROMBIN TIME 34.3 SECONDS (12.5-14.3)
[2020-03-18 11:00] LABS: ALBUMIN 2.8 GM/DL (3.2-5.2); ALT/SGPT 18 U/L (12-78); BILIRUBIN,DIRECT 0.2 MG/DL (0.0-0.2); BILIRUBIN,TOTAL 0.9 MG/DL (0.2-1.0); NT-PRO BNP 2841 PG/ML (<450); TOTAL PROTEIN 6.8 GM/DL (6.4-8.2)
[2020-03-18 11:25] LABS: BLOOD UREA NITROGEN 16 MG/DL (7-18); CALCIUM LEVEL 8.7 MG/DL (8.8-10.2); CARBON DIOXIDE LEVEL 30 MEQ/L (21-32); CHLORIDE LEVEL 106 MEQ/L (98-107); CREATININE FOR GFR 1.13 MG/DL (0.70-1.30); GLOMERULAR FILTRATION RATE > 60.0 (>35); GLUCOSE, FASTING 127 MG/DL (70-100); POTASSIUM SERUM 3.9 MEQ/L (3.5-5.1); SODIUM LEVEL 142 MEQ/L (136-145)
--- NOTE | 2020-03-18 11:57 | REP ---
INDICATION: DYSPNEA/COUGH COMPARISON: 10/11/2019 TECHNIQUE: Portable AP view of the chest FINDINGS: Elevation to the right hemidiaphragm along with diffuse chronic interstitial changes and cardiomegaly appear relatively stable. Round left upper lobe mass considerably increased and now measuring 5.5 cm diameter (previously measuring 2.5 cm diameter). Ill-defined scattered left sided infiltrates are also identified. IMPRESSION: 1. Enlarged left upper lobe mass measuring 5.5 cm. 2. Suspected increased scattered left sided infiltrates. <Electronically signed by Chuckie Oates > 03/18/20 [id number]
[2020-03-18] MEDS ORDERED: ISOVUE-370 76% 100ML VIAL As Ordered ONE (12:00)
--- NOTE | 2020-03-18 12:24 | REP ---
INDICATION: sob/cancer COMPARISON: 10/01/2019 TECHNIQUE: Axial contrast enhanced images from the thoracic inlet to the upper abdomen using pulmonary embolus technique with multiplanar re-formations. 75 ml Isovue 370 intravenous contrast material administered without complication. This CT examination was performed using the following dose reduction techniques: Automated exposure control, adjustment of mA and/or kv according to the patient's size, and use of iterative reconstruction technique. FINDINGS: Satisfactory enhancement of the pulmonary vasculature is achieved and no filling defects are identified to suggest pulmonary embolus. Thoracic aorta without evidence for aneurysm. Stable mild cardiomegaly suggested without significant pericardial effusion. Left upper lobe mass has considerably increased in size and now measures approximately 5.5 x 5.5 x 5.9 cm areas of consolidation surrounding the left upper lobe mass along with right lower lobe ill-defined nodular consolidation/atelectasis, small bilateral pleural effusions (left greater than right), lower lobe atelectasis, diffuse increased interstitial markings, and increased mediastinal and hilar adenopathy consistent with active malignancy/metastatic disease. Musculoskeletal structures demonstrate age-related degenerative changes without acute osseous abnormality. Limited upper abdomen demonstrates normal bilateral adrenal glands and cholelithiasis. IMPRESSION: 1. No pulmonary embolus. 2. 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 <Electronically signed by Chuckie Oates > 03/18/20 1213
[2020-03-18] MEDS ORDERED: FUROSEMIDE 40MG/4ML VIAL (J1940) IV ONE (13:45)
[2020-03-18 13:48] VITALS: BP 177/78
--- NOTE | 2020-03-18 13:54 | ECGEPIP ---
[facility] - ED Test Date: 2020-03-18 Pat Name: ANETA SMITH Department: Room: - Gender: Male [employer] Technician: MARYAN : [id number] Requested By: Niharika Haynes Order Number: [id number] Reading MD: Niharika Haynes Measurements Intervals Seltzer Rate: 73 P: IA: 0 QRS: -33 QRSD: 146 T: 26 QT: 434 QTc: 481 Interpretive Statements SINUS FIRST DEGREE AV BLOCK PVC MARKED LEFT AXIS DEVIATION LAE RIGHT BUNDLE BRANCH BLOCK POSSIBLE LEFT VENTRICULAR HYPERTROPHY Electronically Signed on 03-18-2020 13:53:28 EST by Niharika Haynes
[2020-03-18 14:12] VITALS: O2SAT 97
--- NOTE | 2020-03-20 11:12 | ED PDOC ---
Post-Departure Follow-Up cta chhest faxed to dr louis for fu Zuly Alejandro MD Mar 20, 2020 11:12
== END 2020-03-18 14:57 | disposition home or self-care (01) ==
LOC: M ED 09:17 → EDBD 09:17 → M ED 14:57
DX: C34.12 Malignant neoplasm of upper lobe, left bronchus or lung (principal); C77.9 Secondary and unspecified malignant neoplasm of lymph node, unspecified; I48.91 Unspecified atrial fibrillation; Z79.01 Long term (current) use of anticoagulants; Z92.21 Personal history of antineoplastic chemotherapy; Z87.891 Personal history of nicotine dependence
CPT/HCPCS: 71045; 71275; 80047; 80048; 80076; 82803; 83605; 83880; 84443; 84484; 85025; 85610; 87040; 87486; 87581; 87633; 87798; 93005; 93041; 96374; 99285; J1940; Q9967